=== PATIENT | female | born 1970 | race Caucasian/White ===

== ENCOUNTER → 2022-02-23 09:27 | Outpatient (CLI) | payer OTHER, MEDICAID, SELFPAY ==
[2022-02-23 10:58] LABS: Add Manual Diff / Slide Review NO; Basophils Absolute Auto 100 /uL (0-100); Eosinophils Absolute Auto 300 /uL (0-450); Eosinophils Percent Auto 5.1 % (2-4); Hematocrit 40.9 % (36-46); Hemoglobin 13.5 g/dL (12.0-16.0); Lymphocytes Absolute Auto 2000 /uL (1100-4500); Lymphocytes Percent Auto 36.7 % (25-40); Mean Corpuscular Hemoglobin 30.9 PG (26-34); Mean Corpuscular Volume 93.7 fL (80-100); Monocytes Absolute Auto 700 /uL (0-900); Monocytes Percent Auto 11.7 % (3-14); Neutrophils Absolute Auto 2500 /uL (1500-7000); Neutrophils Percent Auto 45.5 % (50-75); Platelet Count 179 X10^3/uL (150-400); Red Blood Cell Count 4.37 X10^6/uL (4.0-5.2); White Blood Cell Count 5.6 X10^3/uL (4.5-11.0)
[2022-02-23 11:25] LABS: Alanine Aminotransferase 22 IU/L (<35); Albumin 4.3 g/dL (3.5-5.0); Albumin Globulin Ratio 1.3 (1.0-2.8); Alkaline Phosphatase 65 U/L (38-126); Aspartate Aminotransferase 39 IU/L (14-36); BUN Creatinine Ratio 17.6 (6-22); Bilirubin Total 0.8 mg/dL (0.2-1.3); Blood Urea Nitrogen 16 mg/dL (7-17); Calcium 9.2 mg/dL (8.4-10.2); Carbon Dioxide 27 mmol/L (22-32); Chloride 104 mmol/L (98-107); Cholesterol 211 mg/dL (140-199); Estimated Glomerular Filt Rate > 60 mL/min (>60); Globulin 3.2 g/dL (1.7-4.1); Glucose 87 mg/dL (70-100); HDL Cholesterol 97 mg/dL (40-60); HEMOLYSIS < 15 (0-50); LDL Cholesterol Calculated 105 mg/dL (<100); Potassium 4.9 mmol/L (3.4-5.1); Sodium 138 mmol/L (137-145); Total Protein 7.5 g/dL (6.3-8.2); Triglycerides 44 mg/dL (35-150)
[2022-02-23 11:40] LABS: Free T3, Triiodothyronine Free 3.56 pg/mL (2.77-5.27)
[2022-02-23 11:54] LABS: TSH w/ Reflex to FT4 1.32 uIU/mL (0.47-4.68)
== END ==
PROVIDERS: PCP Family Medicine; Referring Provider Family Medicine; Visit Provider Family Medicine
DX: G89.29 Other chronic pain (principal); M54.2 Cervicalgia; M77.12 Lateral epicondylitis, left elbow; E03.9 Hypothyroidism, unspecified; M54.50 Low back pain, unspecified
CPT/HCPCS: 36415; 80053; 80061; 84443; 84481; 85025

== ENCOUNTER → 2022-07-19 14:31 | Outpatient (CLI) | payer OTHER, MEDICAID, SELFPAY ==
--- NOTE | 2022-07-19 14:33 | DI.MG.S_ITS ---
BILATERAL DIGITAL SCREENING MAMMOGRAM 3D/2D WITH CAD: 07/19/2022 CLINICAL: Routine screening. Baseline exam. Family history of breast cancer. No prior exams were available for comparison. Both breasts are heterogeneously dense, which may obscure small masses (category c / 51-75% glandular tissue). Current study was also evaluated with a Computer Aided Detection (CAD) system. There are benign calcifications in both breasts. No significant masses, calcifications, or other findings are seen in either breast. IMPRESSION: BENIGN There is no mammographic evidence of malignancy. A 1 year screening mammogram is recommended. Based on the Tyrer Cuzick model (a risk assessment model) the patient's lifetime risk is 10.6% and her 10 year risk is 2.9%. According to the ACR, ACS, and NCCN guidelines, an annual breast MRI exam along with mammogram is recommended if the patient's lifetime risk is 20% or greater. This exam was interpreted at Station ID: [id number]. NOTE: For mammograms, a report in lay terms will be sent to the patient. Approximately 15% of breast malignancies will not be visualized mammographically. In the management of a palpable breast mass, a negative mammogram must not discourage biopsy of a clinically suspicious lesion. Electronically Signed By: Agusto [email or web address]:07/20/2022 10:20:36 letter sent: Normal Exam ACR BI-RADS Category 2: Benign Finding(s) 3342F
== END ==
PROVIDERS: PCP Family Medicine; Referring Provider Family Medicine; Visit Provider Family Medicine
DX: Z12.31 Encounter for screening mammogram for malignant neoplasm of breast (principal); Z80.3 Family history of malignant neoplasm of breast
CPT/HCPCS: 77063; 77067

== ENCOUNTER → 2023-02-23 11:45 | Outpatient (CLI) | payer OTHER, MEDICAID, SELFPAY ==
--- NOTE | 2023-02-23 11:47 | DI.RAD.S_ITS ---
PROCEDURE: XR HAND RT MIN 3V INDICATIONS: pain to middle finger, misshapen appearance (sausage-like) TECHNIQUE: 3 views of the hand(s) acquired. COMPARISON: None. FINDINGS: Bones: No fractures or dislocations. Carpal bones are normally aligned. There is a lucency in the distal aspect of the 3rd middle phalanx at the distal interphalangeal joint. There is joint space narrowing, periarticular bony erosion and periarticular soft tissue swelling at the 3rd distal interphalangeal joint. Soft tissues: No suspicious soft tissue calcifications. IMPRESSION: 1. Joint space narrowing and periarticular soft tissue swelling at the 3rd distal interphalangeal joint. There is a lucency in the distal aspect of the 3rd middle phalanx adjacent to the 3rd distal interphalangeal joint, probably a prominent subchondral cyst. There is periarticular bony erosion and soft tissue swelling. Differential diagnoses are inflammatory arthritis versus septic arthritis. Dictated by: Vidhya Cruz M.D. on 02/23/2023 at 15:14 Approved by: Vidhya Cruz M.D. on 02/23/2023 at 15:25
[2023-02-23 13:14] LABS: Add Manual Diff / Slide Review NO; Basophils Absolute Auto 0 /uL (0-100); Basophils Percent Auto 0.7 % (0-2); Eosinophils Absolute Auto 100 /uL (0-450); Eosinophils Percent Auto 1.1 % (2-4); Hematocrit 38.6 % (36-46); Hemoglobin 13.1 g/dL (12.0-16.0); Lymphocytes Absolute Auto 1700 /uL (1100-4500); Lymphocytes Percent Auto 24.9 % (25-40); Mean Corpuscular Hemoglobin 31.5 PG (26-34); Mean Corpuscular Volume 92.7 fL (80-100); Monocytes Absolute Auto 600 /uL (0-900); Neutrophils Absolute Auto 4500 /uL (1500-7000); Neutrophils Percent Auto 64.3 % (50-75); Platelet Count 186 X10^3/uL (150-400); Red Blood Cell Count 4.17 X10^6/uL (4.0-5.2); Red Cell Distribution Width 14.7 % (11.6-14.8)
[2023-02-23 13:58] LABS: Alanine Aminotransferase 38 IU/L (<35); Albumin 4.5 g/dL (3.5-5.0); Albumin Globulin Ratio 1.5 (1.0-2.8); Alkaline Phosphatase 65 U/L (38-126); Aspartate Aminotransferase 67 IU/L (14-36); BUN Creatinine Ratio 18.1 (6-22); Bilirubin Total 0.8 mg/dL (0.2-1.3); Blood Urea Nitrogen 15 mg/dL (7-17); C-Reactive Protein Quant 0.5 mg/dL (<1.0); Calcium 9.4 mg/dL (8.4-10.2); Carbon Dioxide 24 mmol/L (22-32); Chloride 102 mmol/L (98-107); Estimated Glomerular Filt Rate > 60 mL/min (>60); Glucose 103 mg/dL (70-100); HEMOLYSIS < 15 (0-50); Potassium 4.3 mmol/L (3.4-5.1); Sodium 135 mmol/L (137-145); Total Protein 7.5 g/dL (6.3-8.2); Uric Acid 9.9 mg/dL (2.5-6.2)
[2023-02-23 13:59] LABS: Rheumatoid Factor 14.5 IU/mL (<12.0)
[2023-02-23 14:44] LABS: Vitamin B12 239 pg/mL (239-931)
== END ==
PROVIDERS: PCP Family Medicine; Referring Provider Physician Assistant; Visit Provider Physician Assistant
DX: M79.644 Pain in right finger(s) (principal)
CPT/HCPCS: 36415; 73130; 80053; 82607; 83036; 84550; 85025; 86140; 86430

== ENCOUNTER → 2023-05-10 11:20 | Outpatient (CLI) | payer OTHER, MEDICAID, SELFPAY ==
--- NOTE | 2023-05-10 11:21 | DI.RAD.S_ITS ---
PROCEDURE: XR CERVICAL SPINE 2V OR 3V INDICATIONS: acute on chronic pain TECHNIQUE: 3 view(s) of the cervical spine were acquired. COMPARISON: None. FINDINGS: Bones: No fractures or dislocations to the T1 level. The lateral masses of C1 appear intact on the odontoid view. No suspicious bony lesions. Severe cervical spondylosis. Multilevel facet arthropathy. Severe disc height loss at C4-C5. Anterolisthesis of C3 on C4 measures approximately 3.5 mm. Soft tissues: No prevertebral soft tissue swelling. IMPRESSION: Severe cervical spondylosis. 3.5 mm of anterolisthesis of C3 on C4. Dictated by: Gabe Currie M.D. on 05/10/2023 at 17:04 Approved by: Gabe Currie M.D. on 05/10/2023 at 17:07
== END ==
PROVIDERS: PCP Family Medicine; Referring Provider Physician Assistant; Visit Provider Physician Assistant
DX: M47.812 Spondylosis without myelopathy or radiculopathy, cervical region (principal); M54.2 Cervicalgia; G89.29 Other chronic pain
CPT/HCPCS: 72040

== ENCOUNTER → 2023-08-15 15:01 | Outpatient (CLI) | payer OTHER, MEDICAID, SELFPAY ==
--- NOTE | 2023-08-15 15:05 | DI.RAD.S_ITS ---
PROCEDURE: XR CERVICAL SPINE 2V OR 3V INDICATIONS: Neck Pain TECHNIQUE: 3 view(s) of the cervical spine were acquired. COMPARISON: [facility], CR, XR CERVICAL SPINE 2V OR 3V, 05/10/2023, 11:27. FINDINGS: Bones: 4 mm anterolisthesis of C3 on C4. Moderate degenerative changes seen elsewhere. 5 mm of anterolisthesis of C7 on T1. Vertebral body heights are well maintained. Soft tissues: No suspicious calcifications. Normal C1 on C2 alignment. IMPRESSION: Moderate degenerative changes and anterolisthesis of C3 on C4 and C7 on T1. If there is high concern for further derangement, consider MRI evaluation. Dictated by: Frankie Montero M.D. on 08/15/2023 at 19:55 Approved by: Frankie Montero M.D. on 08/15/2023 at 19:56
== END ==
PROVIDERS: Family Provider Family Medicine; PCP Family Medicine; Referring Provider Family Medicine; Visit Provider Family Medicine
DX: M47.812 Spondylosis without myelopathy or radiculopathy, cervical region (principal); M43.12 Spondylolisthesis, cervical region; M54.2 Cervicalgia; G89.29 Other chronic pain
CPT/HCPCS: 72040

== ENCOUNTER → 2023-08-16 08:02 | Outpatient (CLI) | payer OTHER, MEDICAID, SELFPAY ==
[2023-08-16 08:41] LABS: Add Manual Diff / Slide Review NO; Basophils Absolute Auto 0 /uL (0-100); Basophils Percent Auto 0.7 % (0-2); Eosinophils Absolute Auto 200 /uL (0-450); Eosinophils Percent Auto 3.9 % (2-4); Hematocrit 40.3 % (36-46); Hemoglobin 13.6 g/dL (12.0-16.0); Lymphocytes Absolute Auto 1500 /uL (1100-4500); Lymphocytes Percent Auto 29.9 % (25-40); Mean Corpuscular HGB Conc 33.6 % (30-36); Mean Corpuscular Hemoglobin 31.6 PG (26-34); Monocytes Absolute Auto 500 /uL (0-900); Monocytes Percent Auto 10.8 % (3-14); Neutrophils Absolute Auto 2800 /uL (1500-7000); Neutrophils Percent Auto 54.7 % (50-75); Platelet Count 168 X10^3/uL (150-400); Red Blood Cell Count 4.29 X10^6/uL (4.0-5.2); Red Cell Distribution Width 14.6 % (11.6-14.8)
[2023-08-16 09:16] LABS: Alanine Aminotransferase 45 IU/L (<35); Albumin 4.5 g/dL (3.5-5.0); Albumin Globulin Ratio 1.5 (1.0-2.8); Alkaline Phosphatase 63 U/L (38-126); Aspartate Aminotransferase 57 IU/L (14-36); BUN Creatinine Ratio 19.7 (6-22); Bilirubin Total 0.8 mg/dL (0.2-1.3); Blood Urea Nitrogen 15 mg/dL (7-17); Calcium 9.4 mg/dL (8.4-10.2); Carbon Dioxide 26 mmol/L (22-32); Chloride 104 mmol/L (98-107); Cholesterol 209 mg/dL (140-199); Estimated Glomerular Filt Rate > 60 mL/min (>60); Globulin 3.1 g/dL (1.7-4.1); Glucose 93 mg/dL (70-100); HDL Cholesterol 98 mg/dL (40-60); HEMOLYSIS < 15 (0-50); LDL Cholesterol Calculated 102 mg/dL (<100); Potassium 4.5 mmol/L (3.4-5.1); Sodium 139 mmol/L (137-145); Total Protein 7.6 g/dL (6.3-8.2); Triglycerides 46 mg/dL (35-150)
[2023-08-17 04:37] LABS: Apolipoprotein B 74 mg/dL (<90)
[2023-08-18 13:26] LABS: Lipoprotein (a) <8.4 nmol/L (<75.0)
== END ==
PROVIDERS: Family Provider Family Medicine; PCP Family Medicine; Referring Provider Family Medicine; Visit Provider Family Medicine
DX: M19.90 Unspecified osteoarthritis, unspecified site (principal); R76.8 Other specified abnormal immunological findings in serum; M10.9 Gout, unspecified; E78.5 Hyperlipidemia, unspecified; R74.8 Abnormal levels of other serum enzymes
CPT/HCPCS: 36415; 80053; 80061; 82172; 83695; 84550; 85025; 86430

== ENCOUNTER → 2023-08-25 08:22 | Outpatient (CLI) | payer OTHER, MEDICAID, SELFPAY ==
--- NOTE | 2023-08-25 08:22 | DI.MRI.S_ITS ---
PROCEDURE: MR CERVICAL SPINE WO CON INDICATIONS: Severe spondylosis and anterolisthesis with significant pain TECHNIQUE: Noncontrast sagittal T1 spin echo and T2 fast spin echo, sagittal STIR, foraminal oblique sagittal T2 fast spin echo, and axial gradient echo or T2 fast spin echo through the cervical spine. COMPARISON: None. FINDINGS: Image quality: Excellent. Alignment and Curvature: Grade 1 anterior degenerative spondylolisthesis C3-4 and T2-3 Bone Marrow: Marrow demonstrates normal overall signal. Spinal Cord: Short 5th thin syrinx noted in the posterior cord measuring 1.3 mm in diameter extending from C5-6 to C7-T1 Paraspinous Soft Tissues: No paravertebral masses. Prevertebral soft tissues are normal in thickness. C2-C3: Normal appearance. C3-C4: Disc space narrowing and hypertrophic facet joints with small right facet joint effusion noted. Mild central stenosis. No foraminal stenosis C4-C5: Disc space narrowing and hypertrophic uncovertebral joints associated with moderate left foraminal stenosis. No central or right foraminal stenosis. C5-C6: Disc space narrowing. No central or foraminal stenosis C6-C7: Disc space narrowing. No central or foraminal stenosis C7-T1: Normal appearance. IMPRESSION: Multilevel degenerative disc disease and arthropathy associated with moderate left foraminal stenosis C4-5 Thin syrinx noted in the posterior cord in the lower cervical spine Approved by: Christ Elmore M.D. on 08/25/2023 at 18:11
== END ==
PROVIDERS: Family Provider Family Medicine; PCP Family Medicine; Referring Provider Family Medicine; Visit Provider Family Medicine
DX: M50.10 Cervical disc disorder with radiculopathy, unspecified cervical region (principal); M48.02 Spinal stenosis, cervical region; M43.12 Spondylolisthesis, cervical region; M54.81 Occipital neuralgia; G89.29 Other chronic pain; M47.22 Other spondylosis with radiculopathy, cervical region
CPT/HCPCS: 72141

== ENCOUNTER → 2023-09-01 08:29 | Outpatient (CLI) | payer OTHER, MEDICAID, SELFPAY ==
--- NOTE | 2023-09-01 08:31 | DI.US.S_ITS ---
PROCEDURE: US ABDOMEN COMPLETE INDICATIONS: abnormally elevated liver enzymes TECHNIQUE: Real-time scanning was performed of the abdominal and retroperitoneal organs, with image documentation. COMPARISON: None. FINDINGS: Liver: Increased liver echogenicity, likely mild hepatic steatosis. Gallbladder: Unremarkable. Biliary ducts: Intrahepatic bile ducts are non-dilated. Extrahepatic bile duct caliber measures 4 mm. Normal is 6-7 mm or less in diameter, or 10 mm or less post-cholecystectomy. Pancreas: Visualized portions of the pancreas are sonographically normal. Spleen: Spleen is normal in size and homogeneous in echotexture. Kidneys: Kidneys are normal in size and echotexture. Right kidney measures 8.1 cm long; left kidney measures 9.6 cm long. No hydronephrosis or nephrolithiasis. No solid masses. Aorta: Visualized aorta is normal in caliber at less than 3 cm. Iliacs: Proximal common iliac arteries are normal in caliber at less than 2.5 cm. IVC: Intrahepatic inferior vena cava is patent. Miscellaneous: No free abdominal fluid. IMPRESSION: Hepatic steatosis. Elevated liver enzymes could indicate steatohepatitis in the absence of other confounding variables. Dictated by: Andre Infante M.D. on 09/01/2023 at 9:11 Approved by: Andre Infante M.D. on 09/01/2023 at 9:13
== END ==
LOC: US 08:30
PROVIDERS: Family Provider Family Medicine; PCP Family Medicine; Referring Provider Family Medicine; Visit Provider Family Medicine
DX: K76.0 Fatty (change of) liver, not elsewhere classified (principal); R74.8 Abnormal levels of other serum enzymes
CPT/HCPCS: 76700

== ENCOUNTER 2023-09-04 08:15 | Outpatient (RCR) | payer OTHER, MEDICAID, SELFPAY ==
--- NOTE | 2023-07-13 13:04 | PT.OIE ---
Current Diagnoses Other chronic pain (07/13/23) Unspecified osteoarthritis, unspecified site (07/13/23) Cervicalgia (07/13/23) Pain in unspecified finger(s) (07/13/23) Past Medical History (Last Updated 06/12/23 @ 15:47 by Favio Fierro MD) Cervical radiculopathy Chicken pox (~1984) Chronic low back pain Chronic neck pain Lateral epicondylitis Myofascial pain Occipital neuralgia Wears glasses Past Surgical History (Last Reviewed 06/12/23 @ 15:45 by Favio Fierro MD) No pertinent past surgical history Visit Care Team Role Provider Type Fawad Jackson MD Family Provider Physician Primary Care Provider Specialty: Family Practice Address: [address] [place] [address] Email: [email or web address] Citlali Parks PA-C Attending Provider Advanced Painter Barrel Referring Provider Specialty: Medical Wound Care Address: [address] [place] [address], [facility] Email: [email or web address] Physical Therapy Initial Evaluation PT-OP-A Visit Information Start: 06/20/23 17:20 Freq: Status: Active Protocol: Document 07/13/23 09:50 LRN (Rec: 07/13/23 12:47 LRN [id number]) Out-Patient Physical Therapy Visit Information Visit Information Visit Type Initial Evaluation Visit Start Time 09:50 Visit Stop Time 10:50 Total Visit Minutes 60 Visit Number 07/19 Evaluation Information Evaluation Date 07/13/23 Precautions Precautions Pt history of inflammatory arthritis, back and neck pain. Record review: cervical spondylosis, anterolisthesis of cervical spine, ringing in ear, dizziness with lifting and R UE weakness - 06/12/23. PT-OP-B Current Condition Start: 06/20/23 17:20 Freq: Status: Active Protocol: Document 07/13/23 09:50 LRN (Rec: 07/13/23 12:47 LRN [id number]) Current Condition History of Current Condition Onset Date 2 months ago. Current Complaints Pain at back of neck, head, R shoulder & R arm pain. History of Current Condition Pt denies any recent incident that she can recall occuring prior to onset of posterior neck tightness (has always had mobility issues) that has progressively moved into the head causing headaches, and eventually caused pain with any head movement. She also c /o shoulder pain, mostly on the right. 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 Pt also reports a deformed R middle finger, but is most interested in rehab for her neck pain. States MD asked if she wanted therapy for her R middle finger deformity, so she said yes, but that her neck is the main reason for coming to therapy. She reports seeing an [facility] (Dr. Fierro) and was told her she had a pinched nerve. Head pain is much reduced and rated 1-2/10. Prior Treatments and Tests Massage therapy and myofascial work ever other week. X-rays taken (05/10/23): C1 appear intact on the odontoid view. No suspicious bony lesions. Severe cervical spondylosis. Multilevel facet arthropathy. Severe disc height loss at C4-C5. Anterolisthesis of C3 on C4 measures approximately 3.5 mm. Future Testing and Treatments Planned Pt hopes for MRI after 6 PT visits. Developmental History Developmental History Pt reports 2 soares ago was pushing wheelbarrow and slipped landing on her knees, causing her chin to hit the wheelbarrel edge. Pt feels she had recovered from the fall. 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 Pt history of Arthritis, back & neck pain, recent headaches. Did [employer] 10 yrs for funa and stopped 5 yrs ago. Pt [place] and [place], lives independently. Treatment Goals Patient/Caregiver Goals Pt goal is: Learn ex or movements that will help support her neck to prevent injections or surgery. Able to move wood and work in yard without onset of neck and R shoulder pain. Increase strength of R arm. Personal Factors Other Personal Factors That May Effect Lives [place] independently Therapy/Recovery on [place] and supports her mother. [place] participation for 10 yrs, ending 5 yrs ago. Musculoskeletal changes ( Anterolisthesis of C3 on C4, disc hgt loss C4-C5, and multilevel facet arthroopathy) . PT-OP-C Subjective Start: 06/20/23 17:20 Freq: Status: Active Protocol: Document 07/13/23 09:50 LRN (Rec: 07/13/23 12:47 LRN [id number]) Patient Questionnaires Neck Disability Index NDI Score 8 Neck Disability Index Impairment 1 to 19% Impaired (Score 1-9) Quick Dash- Upper Extremity Quick Dash UE Score 11.36 Quick Dash UE Impairment 1 to 19% Impaired (Score 1-19) OP-PT Pain Assessment Pain Assessment Grid Paper Pain Assessment Grid Completed Yes Location Head Pain Location Details posterior and top Scale Used Numeric (0 - 10) Description- Other Pain rated 1-2/10 R shoulder Pain Location Details Top of R shoulder into lateral neck, R>L posterior upper back to mid scap Intensity 2 Scale Used Numeric (0 - 10) Pain Alleviating Factors Meditation Other Pain Alleviating Factors Ms relaxors and NSAIDs first few days. Neck Pain Location Details Subocciptal and middle of scapula, radiates up to head/R side of face. 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 Fingers were bluish purple. PT-OP-J Posture/Palpation/Skin Start: 06/20/23 17:20 Freq: Status: Active Protocol: Document 07/13/23 09:50 LRN (Rec: 07/13/23 12:47 LRN [id number]) Posture Evaluation Position Standing Head/C-Spine Posture C-Spine Flattened,Forward Head L-Spine Posture Increased Lordosis Shoulder Posture (L) Forward,(L) Elevated Scapula Posture (R) Retracted,(R) Depressed Arm Posture (L) Internally Rotated,(R) Internally Rotated Pelvis Posture Neutral Comments Posture Comments L chest more anterior, (tight on R side of neck), dowagers hump, Chest in L rotation. Palpation Assessment Location R Rhomboids/Infraspinatus Palpation Location R Rhomboids & Infraspinatus. Palpation Details atrophy R Rhomboids, & infraspinatus R UT Palpation Location R UT feels tight, but is atrophied. Palpation Details Atrophy Neck Palpation Location Suboccipital Palpation Details Tingling down arm. PT-OP-K Range of Motion Start: 06/20/23 17:20 Freq: Status: Active Protocol: Document 07/13/23 09:50 LRN (Rec: 07/13/23 12:47 LRN [id number]) Cervical Spine Range of Motion Cervical Spine Active Degrees Testing Position Sitting Flexion 32 Extension 26 Rotation Left 47 Rotation Right 35 Lateral Flexion Left 10 Lateral Flexion Right 18 ROM Limitations Soft Tissue Tightness Comments L SB causes tingling down R arm, R SB noted tightness on L UT. Flex & Ext caused tightness and ache in R shoulder (worse lookking up) PT-OP-M Strength Start: 06/20/23 17:20 Freq: Status: Active Protocol: Document 07/13/23 09:50 LRN (Rec: 07/13/23 12:47 LRN [id number]) Cervical Spine Strength Cervical Spine Manual Muscle Testing Testing Position Sitting Flexion (C1-2) 4 Good Extension 4 Good Lateral Flexion Left (C3) 4 Good Lateral Flexion Right (C3) 4 Good Comments Ext and SB caused radiating pain into R shoulder. Shoulder Strength Shoulder Manual Muscle Testing Right Extension 4 Good External Rotation 4- Good- Internal Rotation 4- Good- Comments Strength is 5/5 except as indicated above. Left Comments Strength is Generally 5/5 Hand Desk Maker/Pinch Strength Hand Dominance Hand Dominance Right PT-OP-Q Treatments Start: 06/20/23 17:20 Freq: Status: Active Protocol: Document 07/13/23 09:50 LRN (Rec: 07/13/23 12:47 LRN [id number]) Therapeutic Exercises Sitting Exercises Kevin C. Flex Sitting Exercise Name Kevin C. Flex in different ranges Equipment Used Finger tip pressure at forehead Reps/Minutes 4' Comments Cuing for positioningof fingers and caution to not resist into pain. Self-Care/Home Management Treatment Education Patient Education Home Exercise Program Other Education Discussed results of evaluation, discussed goals, and plan of care (POC). Pt agreeable to goals and POC. Activities Self-Care/Home Management Activities I/S pt in C. Kevin Flex strengthening. PT-OP-T Assessment and Plan Start: 06/20/23 17:20 Freq: Status: Active Protocol: Document 07/13/23 09:50 LRN (Rec: 07/13/23 12:47 LRN [id number]) Physical Therapy Assessment Rehab Potential Rehabilitation Potential Fair Evaluation Complexity Number of Personal Factors/Comorbidities 3 or More Number of Body Systems Impaired 4 or More Clinical Presentation at Evaluation Evolving Impairments Impairments Activity Tolerance,Pain, Posture,ROM,Sensation,Soft Tissue Mobility,Strength Goals Three Impairment Decreased neck strength Impairment Generally 4/5 Short Term Goal (STG) Pt will be educated in a Cervical strengthening HEP. STG Duration 2 wks-07/28/23 Care Home Goal (LTG) Improve Cervical strength 1/2 grade with pt able to tolerate her exercise workouts without and increase in neck or R shoulder pain. LTG Duration 10 wks-09/22/23 Two Impairment Decreased R shoulder strength Care Home Goal (LTG) Increase R shoulder/UE strength to 5/5 with pt able to move winter wood and work in yard without onset of neck and R shoulder pain. LTG Duration 10 wks-09/22/23 One Impairment Pt lacks appropriate self care HEP. Short Term Goal (STG) Pt will be educated in proper nighttime positioning to minimize neck/shoulder pain. STG Duration 2 wks-07/28/23 Care Home Goal (LTG) Pt will be educated in HEP for ROM and strengthening of neck /shoulder/upper back that will help support her neck to prevent injections or surgery. LTG Duration 10 wks-09/22/23 Assessment Summary Assessment Pt is a 52 yo female with mechanical dysfunction of the cervical (C3-C5) and thoracic spine, R shoulder, and intrascapular pain (C3-C7). She has mechanical dysfunction with multilevel spondylosis with anterolisthesis of C3 on C4. She is having radiating head pain and tingling in R shoulder with Cervical compression and traction, indicating other soft tissue dysfunction. The pt indicated a year ago slipping and falling with her chin hitting a wheelbarrow as her knees hit the ground. Record review indicates x-rays shoing lateral masses of C1 appear intact on the odontoid view. MRI for bony assessment of C1- C2 and soft tissue involvement to rule out subocciptal instability as she has symptoms of facial and shoulder pain on palpation. Pt will benefit from skilled physical therapy for cervical/ shoulder stabilization, ROM and postural/body mechanics training, and nighttime positioning. Physical Therapy Plan Frequency and Duration Frequency of Treatment 2x/Week Duration of treatment (weeks) 10 Plan of Care Start Date 07/13/23 Plan of Care End Date 09/22/23 Therapeutic Interventions Therapeutic Interventions Home Exercise Program,Joint Mobilizations,Manual Therapy, Neuromuscular Re-education, Self-Care/Home Management,Soft Tissue Mobilization,Taping, Therapeutic Activities, Therapeutic Exercises Modalities Cold Pack/Ice Massage,Electric Stimulation,Hot Packs, Paraffin Bath,Traction- Mechanical,Ultrasound Next Visit Focus/Plan Next Note Type Treatment Note Next Visit Plan Review issued HEP, assess general R UE strength & storekeeper engineering strength, Special C. tests, DTR's, POC: Stabilization of C/S, R shoulder/scapular stabilizers, general UE strengthening, C. AROM stretch, Postural correction exercises. Pt education nighttime/sit/stand positioning, body mechanics,
--- NOTE | 2023-07-13 13:04 | PT.OPPOC ---
Physical, Occupational & Speech Therapy At [facility] Current Diagnoses Other chronic pain (07/13/23) Unspecified osteoarthritis, unspecified site (07/13/23) Cervicalgia (07/13/23) Pain in unspecified finger(s) (07/13/23) Visit Care Team Role Provider Type Fawad Jackson MD Family Provider Physician Primary Care Provider Specialty: Family Practice Address: [address] [place] [address], [id number] Email: [email or web address] Citlali Parks PA-C Attending Provider Advanced Cremator Referring Provider Specialty: Medical Wound Care Address: [address] [place] [address], [id number] Email: [email or web address] Plan Of Care PT-OP-T Assessment and Plan Start: 06/20/23 17:20 Freq: Status: Active Protocol: Document 07/13/23 09:50 LRN (Rec: 07/13/23 12:47 LRN [id number]) Physical Therapy Assessment Rehab Potential Rehabilitation Potential Fair Evaluation Complexity Number of Personal Factors/Comorbidities 3 or More Number of Body Systems Impaired 4 or More Clinical Presentation at Evaluation Evolving Impairments Impairments Activity Tolerance,Pain, Posture,ROM,Sensation,Soft Tissue Mobility,Strength Goals Three Impairment Decreased neck strength Impairment Generally 4/5 Short Term Goal (STG) Pt will be educated in a Cervical strengthening HEP. STG Duration 2 wks-07/28/23 Mill Washer Goal (LTG) Improve Cervical strength 1/2 grade with pt able to tolerate her exercise workouts without and increase in neck or R shoulder pain. LTG Duration 10 wks-09/22/23 Two Impairment Decreased R shoulder strength Half-Way Goal (LTG) Increase R shoulder/UE strength to 5/5 with pt able to move winter wood and work in yard without onset of neck and R shoulder pain. LTG Duration 10 wks-09/22/23 One Impairment Pt lacks appropriate self care HEP. Short Term Goal (STG) Pt will be educated in proper nighttime positioning to minimize neck/shoulder pain. STG Duration 2 wks-07/28/23 Mill Washer Goal (LTG) Pt will be educated in HEP for ROM and strengthening of neck /shoulder/upper back that will help support her neck to prevent injections or surgery. LTG Duration 10 wks-09/22/23 Assessment Summary Assessment Pt is a 52 yo female with mechanical dysfunction of the cervical (C3-C5) and thoracic spine, R shoulder, and intrascapular pain (C3-C7). She has mechanical dysfunction with multilevel spondylosis with anterolisthesis of C3 on C4. She is having radiating head pain and tingling in R shoulder with Cervical compression and traction, indicating other soft tissue dysfunction. The pt indicated a year ago slipping and falling with her chin hitting a wheelbarrow as her knees hit the ground. Record review indicates x-rays shoing lateral masses of C1 appear intact on the odontoid view. MRI for bony assessment of C1- C2 and soft tissue involvement to rule out subocciptal instability as she has symptoms of facial and shoulder pain on palpation. Pt will benefit from skilled physical therapy for cervical/ shoulder stabilization, ROM and postural/body mechanics training, and nighttime positioning. Physical Therapy Plan Frequency and Duration Frequency of Treatment 2x/Week Duration of treatment (weeks) 10 Plan of Care Start Date 07/13/23 Plan of Care End Date 09/22/23 Therapeutic Interventions Therapeutic Interventions Home Exercise Program,Joint Mobilizations,Manual Therapy, Neuromuscular Re-education, Self-Care/Home Management,Soft Tissue Mobilization,Taping, Therapeutic Activities, Therapeutic Exercises Modalities Cold Pack/Ice Massage,Electric Stimulation,Hot Packs, Paraffin Bath,Traction- Mechanical,Ultrasound Next Visit Focus/Plan Next Note Type Treatment Note Next Visit Plan Review issued HEP, assess general R UE strength & insurance billing clerk strength, Special C. tests, DTR's, POC: Stabilization of C/S, R shoulder/scapular stabilizers, general UE strengthening, C. AROM stretch, Postural correction exercises. Pt education nighttime/sit/stand positioning, body mechanics, Plan of Care Dates Plan of Care Start Date 07/13/23 Plan of Care End Date 09/22/23 Electronically Signed by: Kareen Esteban, PT 07/13/23 [id number] If you are in agreement with this Plan of Care, please return a signed and dated copy. I have reviewed this Plan of Care and certify that the skilled therapy services above are required to meet the patient?s needs. Physician Signature Date Printed Name and Credentials Clinical Instructor Signature Printed Name and Credentials
--- NOTE | 2023-07-18 15:43 | PT.OTN ---
Current Diagnoses Other chronic pain (07/18/23) Unspecified osteoarthritis, unspecified site (07/18/23) Cervicalgia (07/18/23) Pain in unspecified finger(s) (07/18/23) Physical Therapy Treatment Note PT-OP-A Visit Information Start: 06/20/23 17:20 Freq: Status: Active Protocol: Document 07/18/23 14:36 LRN (Rec: 07/18/23 15:43 LRN [id number]) Out-Patient Physical Therapy Visit Information Visit Information Visit Type Treatment Note Visit Start Time 14:36 Visit Stop Time 15:14 Total Visit Minutes 38 Visit Number 08/19 Evaluation Information Evaluation Date 07/13/23 Precautions Precautions Pt history of inflammatory arthritis, back and neck pain. Record review: cervical spondylosis, anterolisthesis of cervical spine, ringing in ear, dizziness with lifting and R UE weakness - 06/12/23. PT-OP-B Current Condition Start: 06/20/23 17:20 Freq: Status: Active Protocol: Document 07/13/23 09:50 LRN (Rec: 07/13/23 12:47 LRN [id number]) Current Condition History of Current Condition Onset Date 2 months ago. Current Complaints Pain at back of neck, head, R shoulder & R arm pain. History of Current Condition Pt denies any recent incident that she can recall occuring prior to onset of posterior neck tightness (has always had mobility issues) that has progressively moved into the head causing headaches, and eventually caused pain with any head movement. She also c /o shoulder pain, mostly on the right. Her pain is now slowly lessening, with changes made to her exercise workouts of milieu coordinator weights and reps during exercise. Pt also reports a deformed R middle finger, but is most interested in rehab for her neck pain. States MD asked if she wanted therapy for her R middle finger deformity, so she said yes, but that her neck is the main reason for coming to therapy. She reports seeing an [facility] (Dr. Fierro) and was told her she had a pinched nerve. Head pain is much reduced and rated 1-2/10. Prior Treatments and Tests Massage therapy and myofascial work ever other week. X-rays taken (05/10/23): C1 appear intact on the odontoid view. No suspicious bony lesions. Severe cervical spondylosis. Multilevel facet arthropathy. Severe disc height loss at C4-C5. Anterolisthesis of C3 on C4 measures approximately 3.5 mm. Future Testing and Treatments Planned Pt hopes for MRI after 6 PT visits. Developmental History Developmental History Pt reports 2 soares ago was pushing wheelbarrow and slipped landing on her knees, causing her chin to hit the wheelbarrel edge. Pt feels she had recovered from the fall. She is exercising with an assembler molded frames rehab trainer 2-3x/week. Pt history of Arthritis, back & neck pain, recent headaches. Did [employer] derby 10 yrs for funa and stopped 5 yrs ago. 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 Treatment Goals Patient/Caregiver Goals Pt goal is: Learn ex or movements that will help support her neck to prevent injections or surgery. Able to move wood and work in yard without onset of neck and R shoulder pain. Increase strength of R arm. Personal Factors Other Personal Factors That May Effect Lives on [place] independently Therapy/Recovery on 5 acres and supports her mother. [employer].In participation for 10 yrs, ending 5 yrs ago. Musculoskeletal changes ( Anterolisthesis of C3 on C4, disc hgt loss C4-C5, and multilevel facet arthroopathy) . PT-OP-C Subjective Start: 06/20/23 17:20 Freq: Status: Active Protocol: Document 07/18/23 14:36 LRN (Rec: 07/18/23 15:43 LRN [id number]) OP-PT Subjective Patient Comments Patient Comments numbness in lateral side of R hand PT-OP-H Neuro Start: 06/20/23 17:20 Freq: Status: Active Protocol: Document 07/18/23 14:36 LRN (Rec: 07/18/23 15:43 LRN [id number]) Deep Tendon Reflex & Clonus Assessment Deep Tendon Reflex Bilateral Brachioradialis Deep Tendon Reflex 2+ Normal Bilateral Tricep Deep Tendon Reflex 2+ Normal Right Bicep Deep Tendon Reflex 1+ Diminished Left Bicep Deep Tendon Reflex 2+ Normal PT-OP-J Posture/Palpation/Skin Start: 06/20/23 17:20 Freq: Status: Active Protocol: Document 07/13/23 09:50 LRN (Rec: 07/13/23 12:47 LRN [id number]) Posture Evaluation Position Standing Head/C-Spine Posture C-Spine Flattened,Forward Head L-Spine Posture Increased Lordosis Shoulder Posture (L) Forward,(L) Elevated Scapula Posture (R) Retracted,(R) Depressed Arm Posture (L) Internally Rotated,(R) Internally Rotated Pelvis Posture Neutral Comments Posture Comments L chest more anterior, (tight on R side of neck), dowagers hump, Chest in L rotation. Palpation Assessment Location R Rhomboids/Infraspinatus Palpation Location R Rhomboids & Infraspinatus. Palpation Details atrophy R Rhomboids, & infraspinatus R UT Palpation Location R UT feels tight, but is atrophied. Palpation Details Atrophy Neck Palpation Location Suboccipital Palpation Details Tingling down arm. PT-OP-K Range of Motion Start: 06/20/23 17:20 Freq: Status: Active Protocol: Document 07/13/23 09:50 LRN (Rec: 07/13/23 12:47 LRN [id number]) Cervical Spine Range of Motion Cervical Spine Active Degrees Testing Position Sitting Flexion 32 Extension 26 Rotation Left 47 Rotation Right 35 Lateral Flexion Left 10 Lateral Flexion Right 18 ROM Limitations Soft Tissue Tightness Comments L SB causes tingling down R arm, R SB noted tightness on L UT. Flex & Ext caused tightness and ache in R shoulder (worse lookking up) PT-OP-M Strength Start: 06/20/23 17:20 Freq: Status: Active Protocol: Document 07/18/23 14:36 LRN (Rec: 07/18/23 15:43 LRN [id number]) Hand Investor Relations Coordinator/Pinch Strength Hand Dominance Hand Dominance Right Hand Strength Right Comments lbs: 47, 35, 42 - avg is 41 lbs k, 16, 19 - avg is 19 kg (Norm for age 50-54 is 29.8 kg ) Left Comments lbs: 53, 50, 47 - avg is 50 lbs k, 22, 22 - avg is 22.7 kgs (Norm for age 50-54 is 26 kg) PT-OP-Q Treatments Start: 06/20/23 17:20 Freq: Status: Active Protocol: Document 07/18/23 14:36 LRN (Rec: 07/18/23 15:43 LRN [id number]) Therapeutic Exercises Supine Exercises Deep C. neck flexor Kevin Supine Exercise Name Deep C. neck flexor kevin tightening Reps/Minutes 5 SH x 8 Comments After 8 reps, had more tingling down outside R hand wrist and pinky. Scapular pinches Supine Exercise Name Scapular pinches Side bilateral Comments Cuing for movement and to avoid pain an discomfort. Sitting Exercises Gripping Sitting Exercise Name Gripping Dynamometer Side bilateral Reps/Minutes 6' Comments Avg us marketing director: 22.7 L, 29.8 R Kevin C. Flex Sitting Exercise Name Kevin C. Flex in 2 different ranges (netural, 20 & 40 deg flex) Equipment Used Finger tip pressure at forehead Reps/Minutes 5 SH x 5 Comments Cued for gentle kevin resistance for no pressure or pain. Manual Therapy Treatment Soft Tissue Mobilization R UT Body Location R UT Mobilization Type Strumming Intensity/Depth Superficial Comments Caused numbness in R lateral side of head. Self-Care/Home Management Treatment Education Patient Education Home Exercise Program Other Education 6' to call MD for return call to request open mouth x-ray. Activities Self-Care/Home Management Activities I/S pt in Deep C. neck flexor kevin strengthening (neck elongation) & Scapular pinches . Pt to stop if onset of numbness, tinglng, pain at R wrist/5th digit or head. PT-OP-T Assessment and Plan Start: 06/20/23 17:20 Freq: Status: Active Protocol: Document 07/18/23 14:36 LRN (Rec: 07/18/23 15:43 LRN [id number]) Physical Therapy Assessment Goals Three Impairment Decreased neck strength Impairment Generally 4/5 Short Term Goal (STG) Pt will be educated in a Cervical strengthening HEP. 07/18/23: I/S HEP: Deep C. neck flexor kevin strengthening (neck elongation) & Scapular pinches without R wrist/pinky or head sensation changes/pain . STG Duration 2 wks-07/28/23 progressed Studio Data Analyst Goal (LTG) Improve Cervical strength 1/2 grade with pt able to tolerate her exercise workouts without and increase in neck or R shoulder pain. 07/13/22: I/S HEP: Kevin C. flex strengthening. 07/18/23: I/S HEP: Deep C. neck flexor strengthening. LTG Duration 10 wks-09/22/23 progressed 07/13/23 Two Impairment Decreased R shoulder strength Prison Goal (LTG) Increase R shoulder/UE strength to 5/5 with pt able to move winter wood and work in yard without onset of neck and R shoulder pain. 07/18/23: I/S HEP: Scapular pinches. LTG Duration 10 wks-09/22/23 progressed 07/18/23 One Impairment Pt lacks appropriate self care HEP. Short Term Goal (STG) Pt will be educated in proper nighttime positioning to minimize neck/shoulder pain. STG Duration 2 wks-07/28/23 Prison Goal (LTG) Pt will be educated in HEP for ROM and strengthening of neck /shoulder/upper back that will help support her neck to prevent injections or surgery. LTG Duration 10 wks-09/22/23 Assessment Summary Assessment Pt is a 52 yo female with mechanical dysfunction of the cervical (C3-C5) and thoracic spine, R shoulder, and intrascapular pain (C3-C7). R elbow ext is 4+/5, L is 5/5; Pt noted less response to reflex testing on the L side. Onset of numbness on the R side of face and R hand/wrist on pinky side after UE MMT. 3:04 finished MMT of us marketing director Physical Therapy Plan Frequency and Duration Frequency of Treatment 2x/Week Duration of treatment (weeks) 10 Plan of Care Start Date 07/13/23 Plan of Care End Date 09/22/23 Next Visit Focus/Plan Next Note Type Treatment Note Next Visit Plan Issued HEP, Hold Special C. tests until discuss with referring provider or her physician open mouth x-ray request. NEXT: general UE strengthening POC: Stabilization of C/S, R shoulder/scapular stabilizers, C. AROM stretch, Postural correction exercises. Pt education nighttime/sit/stand positioning, body mechanics.
--- NOTE | 2023-07-21 10:15 | PT.OTN ---
Current Diagnoses Other chronic pain (07/21/23) Unspecified osteoarthritis, unspecified site (07/21/23) Cervicalgia (07/21/23) Pain in unspecified finger(s) (07/21/23) Physical Therapy Treatment Note PT-OP-A Visit Information Start: 06/20/23 17:20 Freq: Status: Active Protocol: Document 07/21/23 09:12 LRN (Rec: 07/21/23 10:14 LRN [id number]) Out-Patient Physical Therapy Visit Information Visit Information Visit Type Treatment Note Visit Start Time 09:12 Visit Stop Time 09:54 Visit Number 09/16 Evaluation Information Evaluation Date 07/13/23 Precautions Precautions Pt history of inflammatory arthritis, back and neck pain. Record review: cervical spondylosis, anterolisthesis of cervical spine, ringing in ear, dizziness with lifting and R UE weakness - 06/12/23. PT-OP-B Current Condition Start: 06/20/23 17:20 Freq: Status: Active Protocol: Document 07/13/23 09:50 LRN (Rec: 07/13/23 12:47 LRN [id number]) Current Condition History of Current Condition Onset Date 2 months ago. Current Complaints Pain at back of neck, head, R shoulder & R arm pain. History of Current Condition Pt denies any recent incident that she can recall occuring prior to onset of posterior neck tightness (has always had mobility issues) that has progressively moved into the head causing headaches, and eventually caused pain with any head movement. She also c /o shoulder pain, mostly on the right. 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 Pt also reports a deformed R middle finger, but is most interested in rehab for her neck pain. States MD asked if she wanted therapy for her R middle finger deformity, so she said yes, but that her neck is the main reason for coming to therapy. She reports seeing an [facility] (Dr. Fierro) and was told her she had a pinched nerve. Head pain is much reduced and rated 1-2/10. Prior Treatments and Tests Massage therapy and myofascial work ever other week. X-rays taken (05/10/23): C1 appear intact on the odontoid view. No suspicious bony lesions. Severe cervical spondylosis. Multilevel facet arthropathy. Severe disc height loss at C4-C5. Anterolisthesis of C3 on C4 measures approximately 3.5 mm. Future Testing and Treatments Planned Pt hopes for MRI after 6 PT visits. Developmental History Developmental History Pt reports 2 soares ago was pushing wheelbarrow and slipped landing on her knees, causing her chin to hit the wheelbarrel edge. Pt feels she had recovered from the fall. She is exercising with an martial arts instructor safety trainer 2-3x/week. Pt history of Arthritis, back & neck pain, recent headaches. Did roller derby 10 yrs for funa and stopped 5 yrs ago. 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 Treatment Goals Patient/Caregiver Goals Pt goal is: Learn ex or movements that will help support her neck to prevent injections or surgery. Able to move wood and work in yard without onset of neck and R shoulder pain. Increase strength of R arm. Personal Factors Other Personal Factors That May Effect Lives on [place] independently Therapy/Recovery on [address] [place] and supports her mother. [employer] participation for 10 yrs, ending 5 yrs ago. Musculoskeletal changes ( Anterolisthesis of C3 on C4, disc hgt loss C4-C5, and multilevel facet arthroopathy) . PT-OP-C Subjective Start: 06/20/23 17:20 Freq: Status: Active Protocol: Document 07/21/23 09:12 LRN (Rec: 07/21/23 10:14 LRN [id number]) OP-PT Subjective Patient Comments Patient Comments Better with head pain, rated 2 -3/10. Neck is tired. Wants to know if a c. traction unit would be helpful that a friend offered her. States her R facial pain (dull ache) moves around: Back of eye, top of R side of head, entire R upper side of face. PT-OP-H Neuro Start: 06/20/23 17:20 Freq: Status: Active Protocol: Document 07/18/23 14:36 LRN (Rec: 07/18/23 15:43 LRN [id number]) Deep Tendon Reflex & Clonus Assessment Deep Tendon Reflex Bilateral Brachioradialis Deep Tendon Reflex 2+ Normal Bilateral Tricep Deep Tendon Reflex 2+ Normal Right Bicep Deep Tendon Reflex 1+ Diminished Left Bicep Deep Tendon Reflex 2+ Normal PT-OP-J Posture/Palpation/Skin Start: 06/20/23 17:20 Freq: Status: Active Protocol: Document 07/13/23 09:50 LRN (Rec: 07/13/23 12:47 LRN [id number]) Posture Evaluation Position Standing Head/C-Spine Posture C-Spine Flattened,Forward Head L-Spine Posture Increased Lordosis Shoulder Posture (L) Forward,(L) Elevated Scapula Posture (R) Retracted,(R) Depressed Arm Posture (L) Internally Rotated,(R) Internally Rotated Pelvis Posture Neutral Comments Posture Comments L chest more anterior, (tight on R side of neck), dowagers hump, Chest in L rotation. Palpation Assessment Location R Rhomboids/Infraspinatus Palpation Location R Rhomboids & Infraspinatus. Palpation Details atrophy R Rhomboids, & infraspinatus R UT Palpation Location R UT feels tight, but is atrophied. Palpation Details Atrophy Neck Palpation Location Suboccipital Palpation Details Tingling down arm. PT-OP-K Range of Motion Start: 06/20/23 17:20 Freq: Status: Active Protocol: Document 07/13/23 09:50 LRN (Rec: 07/13/23 12:47 LRN [id number]) Cervical Spine Range of Motion Cervical Spine Active Degrees Testing Position Sitting Flexion 32 Extension 26 Rotation Left 47 Rotation Right 35 Lateral Flexion Left 10 Lateral Flexion Right 18 ROM Limitations Soft Tissue Tightness Comments L SB causes tingling down R arm, R SB noted tightness on L UT. Flex & Ext caused tightness and ache in R shoulder (worse lookking up) PT-OP-M Strength Start: 06/20/23 17:20 Freq: Status: Active Protocol: Document 07/18/23 14:36 LRN (Rec: 07/18/23 15:43 LRN [id number]) Hand V Groove Cutter/Pinch Strength Hand Dominance Hand Dominance Right Hand Strength Right Comments lbs: 47, 35, 42 - avg is 41 lbs k, 16, 19 - avg is 19 kg (Norm for age 50-54 is 29.8 kg ) Left Comments lbs: 53, 50, 47 - avg is 50 lbs k, 22, 22 - avg is 22.7 kgs (Norm for age 50-54 is 26 kg) PT-OP-Q Treatments Start: 06/20/23 17:20 Freq: Status: Active Protocol: Document 07/21/23 09:12 LRN (Rec: 07/21/23 10:14 LRN [id number]) Therapeutic Exercises Supine Exercises Deep C. neck flexor Kevin Supine Exercise Name Deep C. neck flexor kevin tightening - I/S pt to do at home Equipment Used No pillow, towel roll under neck Reps/Minutes 5 SH x 10 Comments After 8 reps, had more tingling down outside R hand wrist and pinky. Sidelying Exercises Open book stretch Sidelying Exercise Name Open book stretch - I/S pt to do at home. Equipment Used Pillow and towel roll at neck Reps/Minutes 1 SH x 5 Comments To L cued not into pain (~ 100dg L arm HAB; R side: 110 dg) Manual Therapy Treatment Soft Tissue Mobilization L SCM Body Location L SCM at mastoid process and occiput Mobilization Type Sustained Pressure Intensity/Depth Moderate Body Position Supine R side of face Body Location MFR R frontal, temporal, lateral face and above ear. Mobilization Type Manual Lymphatic Drainage Intensity/Depth Superficial Body Position Supine Manual Traction Cervical Details C. tx, 25 deg's flex. Body Position Supine Reps/Duration 10' Comments Release of traction increased R side of facial pain. PT-OP-T Assessment and Plan Start: 06/20/23 17:20 Freq: Status: Active Protocol: Document 07/21/23 09:12 LRN (Rec: 07/21/23 10:14 LRN [id number]) Physical Therapy Assessment Goals Three Impairment Decreased neck strength Impairment Generally 4/5 Short Term Goal (STG) Pt will be educated in a Cervical strengthening HEP. 07/18/23: I/S HEP: Deep C. neck flexor kevin strengthening (neck elongation) & Scapular pinches without R wrist/pinky or head sensation changes/pain . STG Duration 2 wks-07/28/23 progressed Section Forest Fire Warden Goal (LTG) Improve Cervical strength 1/2 grade with pt able to tolerate her exercise workouts without and increase in neck or R shoulder pain. 07/13/22: I/S HEP: Kevin C. flex strengthening. 07/18/23: I/S HEP: Deep C. neck flexor strengthening. LTG Duration 10 wks-09/22/23 progressed 07/13/23 Two Impairment Decreased R shoulder strength Section Forest Fire Warden Goal (LTG) Increase R shoulder/UE strength to 5/5 with pt able to move winter wood and work in yard without onset of neck and R shoulder pain. 07/18/23: I/S HEP: Scapular pinches. LTG Duration 10 wks-09/22/23 progressed 07/18/23 One Impairment Pt lacks appropriate self care HEP. Short Term Goal (STG) Pt will be educated in proper nighttime positioning to minimize neck/shoulder pain. STG Duration 2 wks-07/28/23 Nursing Home Goal (LTG) Pt will be educated in HEP for ROM and strengthening of neck /shoulder/upper back that will help support her neck to prevent injections or surgery. 07/21/23: I/S in HEP: Deep C . neck flexor & open book stretch. LTG Duration 10 wks-09/22/23 Assessment Summary Assessment Pt has R facial tightness and guarding of L SCM; mechanical dysfunction of the cervical ( C1-C3) and thoracic spine, R shoulder, and intrascapular pain (C3-C7). manual C. tx relieved R facial pain, but release caused pain above eye and posterolateral area of R eye. MFR of R face appear to soften L SCM guarding. Open book motion limited by neck pain bilaterally. Physical Therapy Plan Frequency and Duration Frequency of Treatment 2x/Week Duration of treatment (weeks) 10 Plan of Care Start Date 07/13/23 Plan of Care End Date 09/22/23 Next Visit Focus/Plan Next Note Type Treatment Note Next Visit Plan Issued HEP (deep c. neck flexor & open book), Hold Special C. tests until discuss with referring provider or her physician open mouth x-ray request. NEXT: Cont MFR to R face/head . Educate in proper nighttime positioning and start general UE strengthening w/correct posture. POC: Stabilization of C/S, R shoulder/scapular stabilizers, C. AROM stretch, Postural correction exercises. Pt education sit/stand posture, & body mechanics.
--- NOTE | 2023-07-24 09:48 | PT.OTN ---
Current Diagnoses Other chronic pain (07/24/23) Unspecified osteoarthritis, unspecified site (07/24/23) Cervicalgia (07/24/23) Pain in unspecified finger(s) (07/24/23) Physical Therapy Treatment Note PT-OP-A Visit Information Start: 06/20/23 17:20 Freq: Status: Active Protocol: Document 07/24/23 09:12 SP (Rec: 07/24/23 09:50 SP [id number]) Out-Patient Physical Therapy Visit Information Visit Information Visit Type Treatment Note Visit Start Time 09:12 Visit Stop Time 09:48 Visit Number 10/17 Number of [employer] SALES REPRESENTATIVE Visits 1 Evaluation Information Evaluation Date 07/13/23 Precautions Precautions Pt history of inflammatory arthritis, back and neck pain. Record review: cervical spondylosis, anterolisthesis of cervical spine, ringing in ear, dizziness with lifting and R UE weakness - 06/12/23. PT-OP-B Current Condition Start: 06/20/23 17:20 Freq: Status: Active Protocol: Document 07/13/23 09:50 LRN (Rec: 07/13/23 12:47 LRN [id number]) Current Condition History of Current Condition Onset Date 2 months ago. Current Complaints Pain at back of neck, head, R shoulder & R arm pain. History of Current Condition Pt denies any recent incident that she can recall occuring prior to onset of posterior neck tightness (has always had mobility issues) that has progressively moved into the head causing headaches, and eventually caused pain with any head movement. She also c /o shoulder pain, mostly on the right. 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 Pt also reports a deformed R middle finger, but is most interested in rehab for her neck pain. States MD asked if she wanted therapy for her R middle finger deformity, so she said yes, but that her neck is the main reason for coming to therapy. She reports seeing an [facility] (Dr. Fierro) and was told her she had a pinched nerve. Head pain is much reduced and rated 1-2/10. Prior Treatments and Tests Massage therapy and myofascial work ever other week. X-rays taken (05/10/23): C1 appear intact on the odontoid view. No suspicious bony lesions. Severe cervical spondylosis. Multilevel facet arthropathy. Severe disc height loss at C4-C5. Anterolisthesis of C3 on C4 measures approximately 3.5 mm. Future Testing and Treatments Planned Pt hopes for MRI after 6 PT visits. Developmental History Developmental History Pt reports 2 soares ago was pushing wheelbarrow and slipped landing on her knees, causing her chin to hit the wheelbarrel edge. Pt feels she had recovered from the fall. She is exercising with an staff development manager surgical appliance fitter 2-3x/week. Pt history of Arthritis, back & neck pain, recent headaches. Did roller derby 10 yrs for funa and stopped 5 yrs ago. 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 Treatment Goals Patient/Caregiver Goals Pt goal is: Learn ex or movements that will help support her neck to prevent injections or surgery. Able to move wood and work in yard without onset of neck and R shoulder pain. Increase strength of R arm. Personal Factors Other Personal Factors That May Effect Lives on [place] independently Therapy/Recovery on [place] and supports her mother. [employer] participation for 10 yrs, ending 5 yrs ago. Musculoskeletal changes ( Anterolisthesis of C3 on C4, disc hgt loss C4-C5, and multilevel facet arthroopathy) . PT-OP-C Subjective Start: 06/20/23 17:20 Freq: Status: Active Protocol: Document 07/24/23 09:12 SP (Rec: 07/24/23 09:50 SP [id number]) OP-PT Subjective Patient Comments Patient Comments Pt reports neck stiff, not sure if slept wrong. Sleeps with pillow under head only. Compliant with HEP. PT-OP-H Neuro Start: 06/20/23 17:20 Freq: Status: Active Protocol: Document 07/18/23 14:36 LRN (Rec: 07/18/23 15:43 LRN [id number]) Deep Tendon Reflex & Clonus Assessment Deep Tendon Reflex Bilateral Brachioradialis Deep Tendon Reflex 2+ Normal Bilateral Tricep Deep Tendon Reflex 2+ Normal Right Bicep Deep Tendon Reflex 1+ Diminished Left Bicep Deep Tendon Reflex 2+ Normal PT-OP-J Posture/Palpation/Skin Start: 06/20/23 17:20 Freq: Status: Active Protocol: Document 07/13/23 09:50 LRN (Rec: 07/13/23 12:47 LRN [id number]) Posture Evaluation Position Standing Head/C-Spine Posture C-Spine Flattened,Forward Head L-Spine Posture Increased Lordosis Shoulder Posture (L) Forward,(L) Elevated Scapula Posture (R) Retracted,(R) Depressed Arm Posture (L) Internally Rotated,(R) Internally Rotated Pelvis Posture Neutral Comments Posture Comments L chest more anterior, (tight on R side of neck), dowagers hump, Chest in L rotation. Palpation Assessment Location R Rhomboids/Infraspinatus Palpation Location R Rhomboids & Infraspinatus. Palpation Details atrophy R Rhomboids, & infraspinatus R UT Palpation Location R UT feels tight, but is atrophied. Palpation Details Atrophy Neck Palpation Location Suboccipital Palpation Details Tingling down arm. PT-OP-K Range of Motion Start: 06/20/23 17:20 Freq: Status: Active Protocol: Document 07/13/23 09:50 LRN (Rec: 07/13/23 12:47 LRN [id number]) Cervical Spine Range of Motion Cervical Spine Active Degrees Testing Position Sitting Flexion 32 Extension 26 Rotation Left 47 Rotation Right 35 Lateral Flexion Left 10 Lateral Flexion Right 18 ROM Limitations Soft Tissue Tightness Comments L SB causes tingling down R arm, R SB noted tightness on L UT. Flex & Ext caused tightness and ache in R shoulder (worse lookking up) PT-OP-M Strength Start: 06/20/23 17:20 Freq: Status: Active Protocol: Document 07/18/23 14:36 LRN (Rec: 07/18/23 15:43 LRN [id number]) Hand Conveyor Feeder Offbearer/Pinch Strength Hand Dominance Hand Dominance Right Hand Strength Right Comments lbs: 47, 35, 42 - avg is 41 lbs k, 16, 19 - avg is 19 kg (Norm for age 50-54 is 29.8 kg ) Left Comments lbs: 53, 50, 47 - avg is 50 lbs k, 22, 22 - avg is 22.7 kgs (Norm for age 50-54 is 26 kg) PT-OP-Q Treatments Start: 06/20/23 17:20 Freq: Status: Active Protocol: Document 07/24/23 09:12 SP (Rec: 07/24/23 09:50 SP [id number]) Therapeutic Exercises Supine Exercises Deep C. neck flexor Kevin Supine Exercise Name Deep C. neck flexor kevin tightening Equipment Used No pillow, towel roll under neck Reps/Minutes 5 SH x 10 Comments Cued gentle CS nod into CS ext , pain/tingle free Sidelying Exercises Open book stretch Sidelying Exercise Name Open book stretch HEP reviewed Equipment Used Pillow and towel roll at neck Reps/Minutes 1 SH x 5 reps Comments cued limit cervical ROM, focus on scapular glide painfree range Sitting Exercises cervical & scap retraction Sitting Exercise Name reviewed for HEP Side bilateral Reps/Minutes 5SH x10 Comments cervical retraction midline- good feedback pain/tingle free Kevin C. Flex Sitting Exercise Name Kevin C. Flex in 2 different ranges (netural, 20 & 40 deg flex) Equipment Used Finger tip pressure at forehead Reps/Minutes 5 SH x 5- painfree Comments Cued elongate posture/scap neutral/CS retraction neutral then gentle isomet Manual Therapy Treatment Soft Tissue Mobilization L SCM Body Location L>R SCM at mastoid process & prox to sternum Mobilization Type Sustained Pressure,Other Intensity/Depth Moderate Body Position Supine Comments gentle STM with instruction on self application pincer knead , sustained pressure with head nod/turn R side of face Body Location MFR R frontal, temporal, lateral face and above ear. Mobilization Type Manual Lymphatic Drainage Intensity/Depth Superficial Body Position Supine R UT Body Location R>L UT, SOR Mobilization Type Strumming,Sustained Pressure Intensity/Depth Superficial Comments good feedback response occiput posterior glide into flexion. Self-Care/Home Management Treatment Education Other Education Time spent anatomy, side sleeping /c pillows support postural alignment. PT-OP-T Assessment and Plan Start: 06/20/23 17:20 Freq: Status: Active Protocol: Document 07/24/23 09:12 SP (Rec: 07/24/23 09:50 SP [id number]) Physical Therapy Assessment Goals Three Impairment Decreased neck strength Impairment Generally 4/5 Short Term Goal (STG) Pt will be educated in a Cervical strengthening HEP. 07/18/23: I/S HEP: Deep C. neck flexor kevin strengthening (neck elongation) & Scapular pinches without R wrist/pinky or head sensation changes/pain . STG Duration 2 wks-07/28/23 progressed Prison Goal (LTG) Improve Cervical strength 1/2 grade with pt able to tolerate her exercise workouts without and increase in neck or R shoulder pain. 07/13/22: I/S HEP: Kevin C. flex strengthening. 07/18/23: I/S HEP: Deep C. neck flexor strengthening. LTG Duration 10 wks-09/22/23 progressed 07/13/23 Two Impairment Decreased R shoulder strength Prison Goal (LTG) Increase R shoulder/UE strength to 5/5 with pt able to move [employer] and work in yard without onset of neck and R shoulder pain. 07/18/23: I/S HEP: Scapular pinches. LTG Duration 10 wks-09/22/23 progressed 07/18/23 One Impairment Pt lacks appropriate self care HEP. Short Term Goal (STG) Pt will be educated in proper nighttime positioning to minimize neck/shoulder pain. STG Duration 2 wks-07/28/23 Prison Goal (LTG) Pt will be educated in HEP for ROM and strengthening of neck /shoulder/upper back that will help support her neck to prevent injections or surgery. 07/21/23: I/S in HEP: Deep C . neck flexor & open book stretch. LTG Duration 10 wks-09/22/23 Assessment Summary Assessment Pt good response to manual with ed self application for home carryover relief. Education during ther ex CS nod/flex neutral scap retraction with elongated posturing improved form and painfree CS flexion isometrics . Physical Therapy Plan Frequency and Duration Frequency of Treatment 2x/Week Duration of treatment (weeks) 10 Plan of Care Start Date 07/13/23 Plan of Care End Date 09/22/23 Therapeutic Interventions Therapeutic Interventions Home Exercise Program,Joint Mobilizations,Manual Therapy, Neuromuscular Re-education, Self-Care/Home Management,Soft Tissue Mobilization,Taping, Therapeutic Activities, Therapeutic Exercises Modalities Cold Pack/Ice Massage,Electric Stimulation,Hot Packs, Paraffin Bath,Traction- Mechanical,Ultrasound Next Visit Focus/Plan Next Note Type Treatment Note Next Visit Plan Issued HEP (deep c. neck flexor & open book), Hold Special C. tests until discuss with referring provider or her physician open mouth x-ray request. NEXT: Cont MFR to R face/head . Educate in proper nighttime positioning and start general UE strengthening w/correct posture. POC: Stabilization of C/S, R shoulder/scapular stabilizers, C. AROM stretch, Postural correction exercises. Pt education sit/stand posture, & body mechanics.
--- NOTE | 2023-08-08 12:34 | PT.OTN ---
Current Diagnoses Other chronic pain (08/08/23) Unspecified osteoarthritis, unspecified site (08/08/23) Cervicalgia (08/08/23) Pain in unspecified finger(s) (08/08/23) Physical Therapy Treatment Note PT-OP-A Visit Information Start: 06/20/23 17:20 Freq: Status: Active Protocol: Document 08/08/23 11:20 LRN (Rec: 08/08/23 12:16 LRN [id number]) Out-Patient Physical Therapy Visit Information Visit Information Visit Type Treatment Note Visit Start Time 11:20 Visit Stop Time 12:05 Visit Number 11/16 Number of OTOLARYNGOLOGY REP Visits 1 Evaluation Information Evaluation Date 07/13/23 Precautions Precautions Pt history of inflammatory arthritis, back and neck pain. Record review: cervical spondylosis, anterolisthesis of cervical spine, ringing in ear, dizziness with lifting and R UE weakness - 06/12/23. PT-OP-B Current Condition Start: 06/20/23 17:20 Freq: Status: Active Protocol: Document 07/13/23 09:50 LRN (Rec: 07/13/23 12:47 LRN [id number]) Current Condition History of Current Condition Onset Date 2 months ago. Current Complaints Pain at back of neck, head, R shoulder & R arm pain. History of Current Condition Pt denies any recent incident that she can recall occuring prior to onset of posterior neck tightness (has always had mobility issues) that has progressively moved into the head causing headaches, and eventually caused pain with any head movement. She also c /o shoulder pain, mostly on the right. 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 Pt also reports a deformed R middle finger, but is most interested in rehab for her neck pain. States MD asked if she wanted therapy for her R middle finger deformity, so she said yes, but that her neck is the main reason for coming to therapy. She reports seeing an [facility] (Dr. Fierro) and was told her she had a pinched nerve. Head pain is much reduced and rated 1-2/10. Prior Treatments and Tests Massage therapy and myofascial work ever other week. X-rays taken (05/10/23): C1 appear intact on the odontoid view. No suspicious bony lesions. Severe cervical spondylosis. Multilevel facet arthropathy. Severe disc height loss at C4-C5. Anterolisthesis of C3 on C4 measures approximately 3.5 mm. Future Testing and Treatments Planned Pt hopes for MRI after 6 PT visits. Developmental History Developmental History Pt reports 2 soares ago was pushing wheelbarrow and slipped landing on her knees, causing her chin to hit the wheelbarrel edge. Pt feels she had recovered from the fall. She is exercising with an undertaker assistant care trainer 2-3x/week. Pt history of Arthritis, back & neck pain, recent headaches. Did [employer] 10 yrs for funa and stopped 5 yrs ago. 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 Treatment Goals Patient/Caregiver Goals Pt goal is: Learn ex or movements that will help support her neck to prevent injections or surgery. Able to move wood and work in yard without onset of neck and R shoulder pain. Increase strength of R arm. Personal Factors Other Personal Factors That May Effect Lives on [place] independently Therapy/Recovery [place] and supports her mother. [employer] Voice[employer] participation for 10 yrs, ending 5 yrs ago. Musculoskeletal changes ( Anterolisthesis of C3 on C4, disc hgt loss C4-C5, and multilevel facet arthroopathy) . PT-OP-C Subjective Start: 06/20/23 17:20 Freq: Status: Active Protocol: Document 08/08/23 11:20 LRN (Rec: 08/08/23 12:16 LRN [id number]) OP-PT Subjective Patient Comments Patient Comments Thinks its getting better, can do more physical activities. Headaches are consistent. Pain is off/on. Today it's good, pain is 3-4/ 10, yesterday was worse with pain 5-6/10. Headaches haven' t gone away. Feels like head is heavy, Pain is achy and dull into head and eyes. PT-OP-H Neuro Start: 06/20/23 17:20 Freq: Status: Active Protocol: Document 07/18/23 14:36 LRN (Rec: 07/18/23 15:43 LRN [id number]) Deep Tendon Reflex & Clonus Assessment Deep Tendon Reflex Bilateral Brachioradialis Deep Tendon Reflex 2+ Normal Bilateral Tricep Deep Tendon Reflex 2+ Normal Right Bicep Deep Tendon Reflex 1+ Diminished Left Bicep Deep Tendon Reflex 2+ Normal PT-OP-J Posture/Palpation/Skin Start: 06/20/23 17:20 Freq: Status: Active Protocol: Document 07/13/23 09:50 LRN (Rec: 07/13/23 12:47 LRN [id number]) Posture Evaluation Position Standing Head/C-Spine Posture C-Spine Flattened,Forward Head L-Spine Posture Increased Lordosis Shoulder Posture (L) Forward,(L) Elevated Scapula Posture (R) Retracted,(R) Depressed Arm Posture (L) Internally Rotated,(R) Internally Rotated Pelvis Posture Neutral Comments Posture Comments L chest more anterior, (tight on R side of neck), dowagers hump, Chest in L rotation. Palpation Assessment Location R Rhomboids/Infraspinatus Palpation Location R Rhomboids & Infraspinatus. Palpation Details atrophy R Rhomboids, & infraspinatus R UT Palpation Location R UT feels tight, but is atrophied. Palpation Details Atrophy Neck Palpation Location Suboccipital Palpation Details Tingling down arm. PT-OP-K Range of Motion Start: 06/20/23 17:20 Freq: Status: Active Protocol: Document 08/08/23 11:20 LRN (Rec: 08/08/23 12:16 LRN [id number]) Cervical Spine Range of Motion Cervical Spine Active Degrees Testing Position Sitting Flexion 10 Extension 18 Rotation Left 45 Rotation Right 33 Lateral Flexion Left 10 Lateral Flexion Right 13 Comments SB causes head dull ache pain and ms tightness. Ext is reported to be more difficult than flexion. PT-OP-M Strength Start: 06/20/23 17:20 Freq: Status: Active Protocol: Document 07/18/23 14:36 LRN (Rec: 07/18/23 15:43 LRN [id number]) Hand Bleach Tester/Pinch Strength Hand Dominance Hand Dominance Right Hand Strength Right Comments lbs: 47, 35, 42 - avg is 41 lbs k, 16, 19 - avg is 19 kg (Norm for age 50-54 is 29.8 kg ) Left Comments lbs: 53, 50, 47 - avg is 50 lbs k, 22, 22 - avg is 22.7 kgs (Norm for age 50-54 is 26 kg) PT-OP-Q Treatments Start: 06/20/23 17:20 Freq: Status: Active Protocol: Document 08/08/23 11:20 LRN (Rec: 08/08/23 12:16 LRN [id number]) Therapeutic Exercises Sidelying Exercises Open book stretch Sidelying Exercise Name Open book stretch HEP reviewed Equipment Used Pillow and towel roll at neck Reps/Minutes 3 SH Comments cued limit cervical ROM, focus on scapular glide painfree range Sitting Exercises cervical & scap retraction Sitting Exercise Name Pushing to ceiling Side bilateral Reps/Minutes 5SH x10 Comments cervical retraction midline- good feedback pain/tingle free Kevin C. Flex Sitting Exercise Name Kevin C. Flex in 2 different ranges (netural, 20 & 40 deg flex) Equipment Used Finger tip pressure at forehead Reps/Minutes 5 SH x 5- painfree Comments Cued elongate posture/scap neutral/CS retraction neutral then gentle isomet Manual Therapy Treatment Soft Tissue Mobilization Suboccipital Body Location Gentle R suboccipital release Mobilization Type Myofascial Release Intensity/Depth Superficial Body Position Supine Head Body Location Top and posterior head Mobilization Type Myofascial Release Intensity/Depth Superficial Body Position Supine Comments Mild restriction on R side. R side of face Body Location MFR R frontal, temporal, lateral face and above ear. Mobilization Type Myofascial Release Intensity/Depth Superficial Body Position Supine Self-Care/Home Management Treatment Education Patient Education Safety Other Education 10' to contact physician office regarding request for Cervical x-rays to assess C1- C2 for possible dysfunction and informed pt of results of phone call. Recommending pt hold next treatment and to contact referring physician for follow up on recommendation for further imaging. PT-OP-T Assessment and Plan Start: 06/20/23 17:20 Freq: Status: Active Protocol: Document 08/08/23 11:20 LRN (Rec: 08/08/23 12:16 LRN [id number]) Physical Therapy Assessment Goals Three Impairment Decreased neck strength Impairment Generally 4/5 Short Term Goal (STG) Pt will be educated in a Cervical strengthening HEP. 07/18/23: I/S HEP: Deep C. neck flexor kevin strengthening (neck elongation) & Scapular pinches without R wrist/pinky or head sensation changes/pain . STG Duration 2 wks-07/28/23 progressed Group Home Goal (LTG) Improve Cervical strength 1/2 grade with pt able to tolerate her exercise workouts without and increase in neck or R shoulder pain. 07/13/22: I/S HEP: Kevin C. flex strengthening. 07/18/23: I/S HEP: Deep C. neck flexor strengthening. LTG Duration 10 wks-09/22/23 progressed 07/13/23 Two Impairment Decreased R shoulder strength Cnc Field Service Engineer Goal (LTG) Increase R shoulder/UE strength to 5/5 with pt able to move [employer] and work in yard without onset of neck and R shoulder pain. 07/18/23: I/S HEP: Scapular pinches. LTG Duration 10 wks-09/22/23 progressed 07/18/23 One Impairment Pt lacks appropriate self care HEP. Short Term Goal (STG) Pt will be educated in proper nighttime positioning to minimize neck/shoulder pain. STG Duration 2 wks-07/28/23 Group Home Goal (LTG) Pt will be educated in HEP for ROM and strengthening of neck /shoulder/upper back that will help support her neck to prevent injections or surgery. 07/21/23: I/S in HEP: Deep C . neck flexor & open book stretch. LTG Duration 10 wks-09/22/23 Assessment Summary Assessment 52 yo female with mechanical dysfunction of the cervical ( C3-C5) and thoracic spine, R shoulder, and intrascapular pain (C3-C7). Possible C1-C2 dysfunction, held further assessment due to concerns of stability. Pt's cervical mobility has not improved. After MFR of R side of head, she shows improved left C. rot ability but still limited with R rot. Headaches persist . Physical Therapy Plan Frequency and Duration Frequency of Treatment 2x/Week Duration of treatment (weeks) 10 Plan of Care Start Date 07/13/23 Plan of Care End Date 09/22/23 Other Referrals/Consults Referrals/Consults Recommended Recommend Open mouth X-ray to assess for C1-C2 dysfunction. Next Visit Focus/Plan Next Note Type Treatment Note Next Visit Plan Check for referring physician response. Issue HEP if appropriate deep c. neck flexor & ?open book, Hold Special C. tests until discuss with referring provider or her physician open mouth x-ray request. NEXT: Cont MFR to R face/head . Educate in proper nighttime positioning and start general UE strengthening w/correct posture. POC: Stabilization of C/S, R shoulder/scapular stabilizers, C. AROM stretch, Postural correction exercises. Pt education sit/stand posture, & body mechanics.
--- NOTE | 2023-08-16 09:45 | PT.OTN ---
Current Diagnoses Other chronic pain (08/16/23) Unspecified osteoarthritis, unspecified site (08/16/23) Cervicalgia (08/16/23) Pain in unspecified finger(s) (08/16/23) Physical Therapy Treatment Note PT-OP-A Visit Information Start: 06/20/23 17:20 Freq: Status: Active Protocol: Document 08/16/23 09:04 SP (Rec: 08/16/23 09:48 SP [id number]) Out-Patient Physical Therapy Visit Information Visit Information Visit Type Treatment Note Visit Start Time 09:04 Visit Stop Time 09:45 Visit Number 12/17 Number of MEAT CURER Visits 1 Evaluation Information Evaluation Date 07/13/23 Precautions Precautions Pt history of inflammatory arthritis, back and neck pain. Record review: cervical spondylosis, anterolisthesis of cervical spine, ringing in ear, dizziness with lifting and R UE weakness - 06/12/23. 08/15/23 CS xray imaging: Moderate degenerative changes and anterolisthesis of C3 on C4 and C7 on T1. If there is high concern for further derangement, consider MRI evaluation. PT-OP-B Current Condition Start: 06/20/23 17:20 Freq: Status: Active Protocol: Document 07/13/23 09:50 LRN (Rec: 07/13/23 12:47 LRN [id number]) Current Condition History of Current Condition Onset Date 2 months ago. Current Complaints Pain at back of neck, head, R shoulder & R arm pain. History of Current Condition Pt denies any recent incident that she can recall occuring prior to onset of posterior neck tightness (has always had mobility issues) that has progressively moved into the head causing headaches, and eventually caused pain with any head movement. She also c /o shoulder pain, mostly on the right. Her pain is now slowly lessening, with changes made to her exercise workouts of magnetic tester weights and reps during exercise. Pt also reports a deformed R middle finger, but is most interested in rehab for her neck pain. States asked if she wanted therapy for her R middle finger deformity, so she said yes, but that her neck is the main reason for coming to therapy. She reports seeing an [facility] (Dr. Fierro) and was told her she had a pinched nerve. Head pain is much reduced and rated 1-2/10. Prior Treatments and Tests Massage therapy and myofascial work ever other week. X-rays taken (05/10/23): C1 appear intact on the odontoid view. No suspicious bony lesions. Severe cervical spondylosis. Multilevel facet arthropathy. Severe disc height loss at C4-C5. Anterolisthesis of C3 on C4 measures approximately 3.5 mm. Future Testing and Treatments Planned Pt hopes for MRI after 6 PT visits. Developmental History Developmental History Pt reports 2 soares ago was pushing wheelbarrow and slipped landing on her knees, causing her chin to hit the wheelbarrel edge. Pt feels she had recovered from the fall. She is exercising with an emissions testing technician assistive technology trainer 2-3x/week. Pt history of Arthritis, back & neck pain, recent headaches. Did [employer] 10 yrs for funa and stopped 5 yrs ago. 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 Treatment Goals Patient/Caregiver Goals Pt goal is: Learn ex or movements that will help support her neck to prevent injections or surgery. Able to move wood and work in yard without onset of neck and R shoulder pain. Increase strength of R arm. Personal Factors Other Personal Factors That May Effect Lives on [place] independently Therapy/Recovery on [address] [place] and supports her mother. [employer] participation for 10 yrs, ending 5 yrs ago. Musculoskeletal changes ( Anterolisthesis of C3 on C4, disc hgt loss C4-C5, and multilevel facet arthroopathy) . PT-OP-C Subjective Start: 06/20/23 17:20 Freq: Status: Active Protocol: Document 08/16/23 09:04 SP (Rec: 08/16/23 09:48 SP [id number]) OP-PT Subjective Patient Comments Patient Comments Pt reports same neck pain in to head mainly jr looking up and to R and sometimes into R posterolateral arm. Goes into R eye, side of face and ringing into R ear. SHe reports has a friend that helps train, did obliques with eccentric BLE lowering control against resistance pressure, and lateral side bend standing with wt. PT-OP-H Neuro Start: 06/20/23 17:20 Freq: Status: Active Protocol: Document 07/18/23 14:36 LRN (Rec: 07/18/23 15:43 LRN [id number]) Deep Tendon Reflex & Clonus Assessment Deep Tendon Reflex Bilateral Brachioradialis Deep Tendon Reflex 2+ Normal Bilateral Tricep Deep Tendon Reflex 2+ Normal Right Bicep Deep Tendon Reflex 1+ Diminished Left Bicep Deep Tendon Reflex 2+ Normal PT-OP-J Posture/Palpation/Skin Start: 06/20/23 17:20 Freq: Status: Active Protocol: Document 07/13/23 09:50 LRN (Rec: 07/13/23 12:47 LRN [id number]) Posture Evaluation Position Standing Head/C-Spine Posture C-Spine Flattened,Forward Head L-Spine Posture Increased Lordosis Shoulder Posture (L) Forward,(L) Elevated Scapula Posture (R) Retracted,(R) Depressed Arm Posture (L) Internally Rotated,(R) Internally Rotated Pelvis Posture Neutral Comments Posture Comments L chest more anterior, (tight on R side of neck), dowagers hump, Chest in L rotation. Palpation Assessment Location R Rhomboids/Infraspinatus Palpation Location R Rhomboids & Infraspinatus. Palpation Details atrophy R Rhomboids, & infraspinatus R UT Palpation Location R UT feels tight, but is atrophied. Palpation Details Atrophy Neck Palpation Location Suboccipital Palpation Details Tingling down arm. PT-OP-K Range of Motion Start: 06/20/23 17:20 Freq: Status: Active Protocol: Document 08/08/23 11:20 LRN (Rec: 08/08/23 12:16 LRN [id number]) Cervical Spine Range of Motion Cervical Spine Active Degrees Testing Position Sitting Flexion 10 Extension 18 Rotation Left 45 Rotation Right 33 Lateral Flexion Left 10 Lateral Flexion Right 13 Comments SB causes head dull ache pain and ms tightness. Ext is reported to be more difficult than flexion. PT-OP-M Strength Start: 06/20/23 17:20 Freq: Status: Active Protocol: Document 07/18/23 14:36 LRN (Rec: 07/18/23 15:43 LRN [id number]) Hand Woodwind Instruments Inspector/Pinch Strength Hand Dominance Hand Dominance Right Hand Strength Right Comments lbs: 47, 35, 42 - avg is 41 lbs k, 16, 19 - avg is 19 kg (Norm for age 50-54 is 29.8 kg ) Left Comments lbs: 53, 50, 47 - avg is 50 lbs k, 22, 22 - avg is 22.7 kgs (Norm for age 50-54 is 26 kg) PT-OP-Q Treatments Start: 06/20/23 17:20 Freq: Status: Active Protocol: Document 08/16/23 09:04 SP (Rec: 08/16/23 09:48 SP [id number]) Therapeutic Exercises Supine Exercises Deep C. neck flexor Kevin Supine Exercise Name Deep C. neck flexor kevin tightening Equipment Used No pillow, towel roll under neck Reps/Minutes 5 SH x 10 Comments Cued gentle CS nod into CS ext , pain/tingle free Sidelying Exercises Open book stretch Sidelying Exercise Name Open book stretch HEP reviewed Equipment Used Pillow and towel roll at neck Reps/Minutes 3 SH Comments cued limit cervical ROM, focus on scapular glide painfree range Sitting Exercises cervical & scap retraction Sitting Exercise Name Top of Head Pushing to ceiling Side bilateral Reps/Minutes 5SH x10 Comments cervical retraction midline- good feedback pain/tingle free Kevin C. Flex Sitting Exercise Name Kevin C. Flex in 2 different ranges (netural, 20 & 40 deg flex) Equipment Used Finger tip pressure at forehead Reps/Minutes 5 SH x 5- painfree Comments Cued elongate posture/scap neutral/CS retraction neutral then gentle isomet Standing Exercises hip hinge trunk flexion dowel Standing Exercise Name Ther Act 08/16 wall posture Standing Exercise Name trialed in PT for carryover posture seated/stand Resistance declined HO Equipment Used small towel roll behind neck Reps/Minutes 5sec x5 reps Comments Cued CS retraction/head nod flex neutral, scap retraction, neutral LS Therapeutic Activity Therapeutic Activity hip hinge trunk flexion Name Posture mobility: 1. STS 2. Squat tack picker laundry basket. Reps/Minutes 8 reps Comments -dowel along spine hip hinge and squat -Improved CS retraction neutral and hip hinge after wall posture body posi. Manual Therapy Treatment Soft Tissue Mobilization Suboccipital Body Location Gentle R>L suboccipital release Mobilization Type Myofascial Release Intensity/Depth Superficial Body Position Supine Head Body Location Top and posterior head Mobilization Type Myofascial Release Intensity/Depth Superficial Body Position Supine Comments Mild restriction on R side. L SCM Body Location L>R SCM at mastoid process & prox to sternum, Scalene Mobilization Type Rolling,Sustained Pressure, Other Intensity/Depth Moderate Body Position Supine Comments gentle STM with instruction on self application pincer knead , sustained pressure with head nod/turn R side of face Body Location MFR R frontalis, temporalis, lateral face, ear pull Mobilization Type Myofascial Release,Sustained Pressure,Other Intensity/Depth Superficial Body Position Supine R UT Body Location R>L UT, SOR Mobilization Type Strumming,Sustained Pressure Intensity/Depth Superficial Comments good feedback response occiput posterior glide into flexion. Self-Care/Home Management Treatment Education Patient Education Body Mechanics,Pain Management ,Posture Other Education Education provided with manual , self application MWM SCM, TMJ external and intraoral to support decreased jaw and submandible musculature. PT-OP-T Assessment and Plan Start: 06/20/23 17:20 Freq: Status: Active Protocol: Document 08/16/23 09:04 SP (Rec: 08/16/23 09:48 SP [id number]) Physical Therapy Assessment Goals Three Impairment Decreased neck strength Impairment Generally 4/5 Short Term Goal (STG) Pt will be educated in a Cervical strengthening HEP. 07/18/23: I/S HEP: Deep C. neck flexor kevin strengthening (neck elongation) & Scapular pinches without R wrist/pinky or head sensation changes/pain . 08/16/23: progressing CS positioning during wall posture, sit/stand/mobility transfers/picking up items. STG Duration 2 wks-07/28/23 progressed Electrical Designer Drafter Goal (LTG) Improve Cervical strength 1/2 grade with pt able to tolerate her exercise workouts without and increase in neck or R shoulder pain. 07/13/22: I/S HEP: Kevin C. flex strengthening. 07/18/23: I/S HEP: Deep C. neck flexor strengthening. LTG Duration 10 wks-09/22/23 progressed 07/13/23 Two Impairment Decreased R shoulder strength Shelter Goal (LTG) Increase R shoulder/UE strength to 5/5 with pt able to move winter wood and work in yard without onset of neck and R shoulder pain. 07/18/23: I/S HEP: Scapular pinches. LTG Duration 10 wks-09/22/23 progressed 07/18/23 One Impairment Pt lacks appropriate self care HEP. Short Term Goal (STG) Pt will be educated in proper nighttime positioning to minimize neck/shoulder pain. STG Duration 2 wks-07/28/23 Electrical Designer Drafter Goal (LTG) Pt will be educated in HEP for ROM and strengthening of neck /shoulder/upper back that will help support her neck to prevent injections or surgery. 07/21/23: I/S in HEP: Deep C . neck flexor & open book stretch. 08/16/23: trialed wall posture and use dowel for postural alignment, no HOs given. CS isometrics. LTG Duration 10 wks-09/22/23 progressing Assessment Summary Assessment Pt reports less tension and understanding of self application on carryover STMs for pain control and improve mobility. Good response to use of wall for postural feedback during CS HEP and corrections during sit to stand, sit and standing posture less tension on neck. Physical Therapy Plan Frequency and Duration Frequency of Treatment 2x/Week Duration of treatment (weeks) 10 Plan of Care Start Date 07/13/23 Plan of Care End Date 09/22/23 Therapeutic Interventions Therapeutic Interventions Home Exercise Program,Joint Mobilizations,Manual Therapy, Neuromuscular Re-education, Self-Care/Home Management,Soft Tissue Mobilization,Taping, Therapeutic Activities, Therapeutic Exercises Modalities Cold Pack/Ice Massage,Electric Stimulation,Hot Packs, Paraffin Bath,Traction- Mechanical,Ultrasound Other Referrals/Consults Referrals/Consults Recommended Recommend Open mouth X-ray to assess for C1-C2 dysfunction. Next Visit Focus/Plan Next Note Type Treatment Note Next Visit Plan Check for referring physician response. Hold Special C. tests until discuss with referring provider or her physician open mouth x-ray request. NEXT: Review wall posture and mobility carryover. Educate in proper nighttime positioning and start general UE strengthening w/correct posture. POC: Stabilization of C/S, R shoulder/scapular stabilizers, C. AROM stretch, Postural correction exercises. Pt education sit/stand posture, & body mechanics.
--- NOTE | 2023-08-22 12:51 | PT.OTN ---
Current Diagnoses Other chronic pain (08/22/23) Unspecified osteoarthritis, unspecified site (08/22/23) Cervicalgia (08/22/23) Pain in unspecified finger(s) (08/22/23) Physical Therapy Treatment Note PT-OP-A Visit Information Start: 06/20/23 17:20 Freq: Status: Active Protocol: Document 08/22/23 11:20 LRN (Rec: 08/22/23 12:50 LRN [id number]) Out-Patient Physical Therapy Visit Information Visit Information Visit Type Treatment Note Visit Note Brief review of C/S X-ray results to start. Visit Start Time 11:20 Visit Stop Time 11:58 Visit Number 01/16 Evaluation Information Evaluation Date 07/13/23 Precautions Precautions Pt history of inflammatory arthritis, back and neck pain. Record review: cervical spondylosis, anterolisthesis of cervical spine, ringing in ear, dizziness with lifting and R UE weakness - 06/12/23. 08/15/23 x-ray: Moderate degenerative changes and anterolisthesis of C3 on C4 and C7 on T1. PT-OP-B Current Condition Start: 06/20/23 17:20 Freq: Status: Active Protocol: Document 07/13/23 09:50 LRN (Rec: 07/13/23 12:47 LRN [id number]) Current Condition History of Current Condition Onset Date 2 months ago. Current Complaints Pain at back of neck, head, R shoulder & R arm pain. History of Current Condition Pt denies any recent incident that she can recall occuring prior to onset of posterior neck tightness (has always had mobility issues) that has progressively moved into the head causing headaches, and eventually caused pain with any head movement. She also c /o shoulder pain, mostly on the right. Her pain is now slowly lessening, with changes made to her exercise workouts of station operator weights and reps during exercise. Pt also reports a deformed R middle finger, but is most interested in rehab for her neck pain. States MD asked if she wanted therapy for her R middle finger deformity, so she said yes, but that her neck is the main reason for coming to therapy. She reports seeing an [facility] (Dr. Fierro) and was told her she had a pinched nerve. Head pain is much reduced and rated 1-2/10. Prior Treatments and Tests Massage therapy and myofascial work ever other week. X-rays taken (05/10/23): C1 appear intact on the odontoid view. No suspicious bony lesions. Severe cervical spondylosis. Multilevel facet arthropathy. Severe disc height loss at C4-C5. Anterolisthesis of C3 on C4 measures approximately 3.5 mm. Future Testing and Treatments Planned Pt hopes for MRI after 6 PT visits. Developmental History Developmental History Pt reports 2 soares ago was pushing wheelbarrow and slipped landing on her knees, causing her chin to hit the wheelbarrel edge. Pt feels she had recovered from the fall. She is exercising with an news reporter education trainer 2-3x/week. Pt history of Arthritis, back & neck pain, recent headaches. Did [employer] 10 yrs for funa and stopped 5 yrs ago. 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 Treatment Goals Patient/Caregiver Goals Pt goal is: Learn ex or movements that will help support her neck to prevent injections or surgery. Able to move wood and work in yard without onset of neck and R shoulder pain. Increase strength of R arm. Personal Factors Other Personal Factors That May Effect Lives on [address] independently Therapy/Recovery on [address] and supports her mother. [employer] participation for 10 yrs, ending 5 yrs ago. Musculoskeletal changes ( Anterolisthesis of C3 on C4, disc hgt loss C4-C5, and multilevel facet arthroopathy) . PT-OP-C Subjective Start: 06/20/23 17:20 Freq: Status: Active Protocol: Document 08/22/23 11:20 LRN (Rec: 08/22/23 12:50 LRN [id number]) OP-PT Subjective Patient Comments Patient Comments X-rays taken last week, MRI scheduled for Mon (PT after MRI). PT-OP-H Neuro Start: 06/20/23 17:20 Freq: Status: Active Protocol: Document 07/18/23 14:36 LRN (Rec: 07/18/23 15:43 LRN [id number]) Deep Tendon Reflex & Clonus Assessment Deep Tendon Reflex Bilateral Brachioradialis Deep Tendon Reflex 2+ Normal Bilateral Tricep Deep Tendon Reflex 2+ Normal Right Bicep Deep Tendon Reflex 1+ Diminished Left Bicep Deep Tendon Reflex 2+ Normal PT-OP-J Posture/Palpation/Skin Start: 06/20/23 17:20 Freq: Status: Active Protocol: Document 07/13/23 09:50 LRN (Rec: 07/13/23 12:47 LRN [id number]) Posture Evaluation Position Standing Head/C-Spine Posture C-Spine Flattened,Forward Head L-Spine Posture Increased Lordosis Shoulder Posture (L) Forward,(L) Elevated Scapula Posture (R) Retracted,(R) Depressed Arm Posture (L) Internally Rotated,(R) Internally Rotated Pelvis Posture Neutral Comments Posture Comments L chest more anterior, (tight on R side of neck), dowagers hump, Chest in L rotation. Palpation Assessment Location R Rhomboids/Infraspinatus Palpation Location R Rhomboids & Infraspinatus. Palpation Details atrophy R Rhomboids, & infraspinatus R UT Palpation Location R UT feels tight, but is atrophied. Palpation Details Atrophy Neck Palpation Location Suboccipital Palpation Details Tingling down arm. PT-OP-K Range of Motion Start: 06/20/23 17:20 Freq: Status: Active Protocol: Document 08/08/23 11:20 LRN (Rec: 08/08/23 12:16 LRN [id number]) Cervical Spine Range of Motion Cervical Spine Active Degrees Testing Position Sitting Flexion 10 Extension 18 Rotation Left 45 Rotation Right 33 Lateral Flexion Left 10 Lateral Flexion Right 13 Comments SB causes head dull ache pain and ms tightness. Ext is reported to be more difficult than flexion. PT-OP-M Strength Start: 06/20/23 17:20 Freq: Status: Active Protocol: Document 07/18/23 14:36 LRN (Rec: 07/18/23 15:43 LRN [id number]) Hand Instrument Maker Apprentice/Pinch Strength Hand Dominance Hand Dominance Right Hand Strength Right Comments lbs: 47, 35, 42 - avg is 41 lbs k, 16, 19 - avg is 19 kg (Norm for age 50-54 is 29.8 kg ) Left Comments lbs: 53, 50, 47 - avg is 50 lbs k, 22, 22 - avg is 22.7 kgs (Norm for age 50-54 is 26 kg) PT-OP-Q Treatments Start: 06/20/23 17:20 Freq: Status: Active Protocol: Document 08/22/23 11:20 LRN (Rec: 08/22/23 12:50 LRN [id number]) Therapeutic Exercises Supine Exercises Deep C. neck flexor Kevin Supine Exercise Name Deep C. neck flexor kevin tightening Equipment Used No pillow, towel roll under neck Reps/Minutes 5 SH x 4' Comments Cued gentle CS nod into flex, pain/tingle free Sidelying Exercises Open book stretch Sidelying Exercise Name Open book stretch (HEP) Side bilateral Equipment Used Pillow and towel roll at neck Reps/Minutes 3 SH Comments cued painfree cervical ROM, focus on scapular glide, C/S & T/S rot Standing Exercises wall posture Standing Exercise Name Wall posture seated/stand Resistance declined HO Equipment Used small towel roll behind neck Reps/Minutes 5sec x5 reps Comments Cued CS retraction/head nod flex neutral, scap retraction, neutral LS Manual Therapy Treatment Soft Tissue Mobilization Paraspinals Body Location Cervical Paraspinals Mobilization Type Strumming Intensity/Depth Moderate Suboccipital Body Location Kal Suboccipital release Mobilization Type Myofascial Release Intensity/Depth Moderate Body Position Hooklying Head Body Location R side, top and side of head Mobilization Type Myofascial Release Intensity/Depth Superficial Body Position Supine Comments Mild restriction on R side. R side of face Body Location MFR R frontalis, temporalis, lateral face, ear pull Mobilization Type Myofascial Release,Sustained Pressure,Other Intensity/Depth Superficial Body Position Supine PT-OP-T Assessment and Plan Start: 06/20/23 17:20 Freq: Status: Active Protocol: Document 08/22/23 11:20 LRN (Rec: 08/22/23 12:50 LRN [id number]) Physical Therapy Assessment Goals Three Impairment Decreased neck strength Impairment Generally 4/5 Short Term Goal (STG) Pt will be educated in a Cervical strengthening HEP. 07/18/23: I/S HEP: Deep C. neck flexor kevin strengthening (neck elongation) & Scapular pinches without R wrist/pinky or head sensation changes/pain . 08/16/23: progressing CS positioning during wall posture, sit/stand/mobility transfers/picking up items. STG Duration 2 wks-07/28/23 progressed Jail Goal (LTG) Improve Cervical strength 1/2 grade with pt able to tolerate her exercise workouts without and increase in neck or R shoulder pain. 07/13/22: I/S HEP: Kevin C. flex strengthening. 07/18/23: I/S HEP: Deep C. neck flexor strengthening. LTG Duration 10 wks-09/22/23 progressed 07/13/23 Two Impairment Decreased R shoulder strength Jail Goal (LTG) Increase R shoulder/UE strength to 5/5 with pt able to move winter wood and work in yard without onset of neck and R shoulder pain. 07/18/23: I/S HEP: Scapular pinches. LTG Duration 10 wks-09/22/23 progressed 07/18/23 One Impairment Pt lacks appropriate self care HEP. Short Term Goal (STG) Pt will be educated in proper nighttime positioning to minimize neck/shoulder pain. STG Duration 2 wks-07/28/23 Human Resources Executive Goal (LTG) Pt will be educated in HEP for ROM and strengthening of neck /shoulder/upper back that will help support her neck to prevent injections or surgery. 07/21/23: I/S in HEP: Deep C . neck flexor & open book stretch. 08/16/23: trialed wall posture and use dowel for postural alignment, no HOs given. CS isometrics. LTG Duration 10 wks-09/22/23 progressing Assessment Summary Assessment 52 yo female with mechanical dysfunction of the cervical ( anterolisthesis C3onC4, C7onT1 ) and thoracic spine, R shoulder, and intrascapular pain (C3-C7). X-rays taken ( see report: normal C1onC2 alignment) and MRI scheduled . Posture educ helpful, review of mobility carryover is needed. Able to do open book stretch w/o head pain. Her head/facial tension has normalized. She is limited in neck mobility due to mechanical changes in spine. C/S stab and STM needed. Physical Therapy Plan Frequency and Duration Frequency of Treatment 2x/Week Duration of treatment (weeks) 10 Plan of Care Start Date 07/13/23 Plan of Care End Date 09/22/23 Next Visit Focus/Plan Next Note Type Treatment Note Next Visit Plan NEXT: Review posture with mobility carryover. Educate in proper nighttime positioning. Deep C. neck flexor strengthening. Start general UE strengthening w/correct posture. POC: Stabilization of C/S, R shoulder/scapular stabilizers, C. AROM stretch, Postural correction exercises. Pt education sit/stand posture, & body mechanics.
--- NOTE | 2023-08-25 11:15 | PT.OTN ---
Current Diagnoses Other chronic pain (08/25/23) Unspecified osteoarthritis, unspecified site (08/25/23) Cervicalgia (08/25/23) Pain in unspecified finger(s) (08/25/23) Physical Therapy Treatment Note PT-OP-A Visit Information Start: 06/20/23 17:20 Freq: Status: Active Protocol: Document 08/25/23 10:35 SP (Rec: 08/25/23 11:20 SP [id number]) Out-Patient Physical Therapy Visit Information Visit Information Visit Type Treatment Note Visit Start Time 10:35 Visit Stop Time 11:15 Visit Number 02/16 Number of FLEECE TIER Visits 1 Evaluation Information Evaluation Date 07/13/23 Precautions Precautions Pt history of inflammatory arthritis, back and neck pain. Record review: cervical spondylosis, anterolisthesis of cervical spine, ringing in ear, dizziness with lifting and R UE weakness - 06/12/23. 08/15/23 x-ray: Moderate degenerative changes and anterolisthesis of C3 on C4 and C7 on T1. PT-OP-B Current Condition Start: 06/20/23 17:20 Freq: Status: Active Protocol: Document 07/13/23 09:50 LRN (Rec: 07/13/23 12:47 LRN [id number]) Current Condition History of Current Condition Onset Date 2 months ago. Current Complaints Pain at back of neck, head, R shoulder & R arm pain. History of Current Condition Pt denies any recent incident that she can recall occuring prior to onset of posterior neck tightness (has always had mobility issues) that has progressively moved into the head causing headaches, and eventually caused pain with any head movement. She also c /o shoulder pain, mostly on the right. 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 Pt also reports a deformed R middle finger, but is most interested in rehab for her neck pain. States MD asked if she wanted therapy for her R middle finger deformity, so she said yes, but that her neck is the main reason for coming to therapy. She reports seeing an [facility] (Dr. Fierro) and was told her she had a pinched nerve. Head pain is much reduced and rated 1-2/10. Prior Treatments and Tests Massage therapy and myofascial work ever other week. X-rays taken (05/10/23): C1 appear intact on the odontoid view. No suspicious bony lesions. Severe cervical spondylosis. Multilevel facet arthropathy. Severe disc height loss at C4-C5. Anterolisthesis of C3 on C4 measures approximately 3.5 mm. Future Testing and Treatments Planned Pt hopes for MRI after 6 PT visits. Developmental History Developmental History Pt reports 2 soares ago was pushing wheelbarrow and slipped landing on her knees, causing her chin to hit the wheelbarrel edge. Pt feels she had recovered from the fall. She is exercising with an welt maker application trainer 2-3x/week. Pt history of Arthritis, back & neck pain, recent headaches. Did [email or web address] 10 yrs for funa and stopped 5 yrs ago. 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 Treatment Goals Patient/Caregiver Goals Pt goal is: Learn ex or movements that will help support her neck to prevent injections or surgery. Able to move wood and work in yard without onset of neck and R shoulder pain. Increase strength of R arm. Personal Factors Other Personal Factors That May Effect Lives on [address] independently Therapy/Recovery on [place] acres and supports her mother. 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 Musculoskeletal changes ( Anterolisthesis of C3 on C4, disc hgt loss C4-C5, and multilevel facet arthroopathy) . PT-OP-C Subjective Start: 06/20/23 17:20 Freq: Status: Active Protocol: Document 08/25/23 10:35 SP (Rec: 08/25/23 11:20 SP [id number]) OP-PT Subjective Patient Comments Patient Comments Pt reports neck pain little less, has been more mindful of neck posture more retracted back and maybe helping neck, posture feels better. Had MRI if neck this am, will find out what results are later today. PT-OP-H Neuro Start: 06/20/23 17:20 Freq: Status: Active Protocol: Document 07/18/23 14:36 LRN (Rec: 07/18/23 15:43 LRN [id number]) Deep Tendon Reflex & Clonus Assessment Deep Tendon Reflex Bilateral Brachioradialis Deep Tendon Reflex 2+ Normal Bilateral Tricep Deep Tendon Reflex 2+ Normal Right Bicep Deep Tendon Reflex 1+ Diminished Left Bicep Deep Tendon Reflex 2+ Normal PT-OP-J Posture/Palpation/Skin Start: 06/20/23 17:20 Freq: Status: Active Protocol: Document 07/13/23 09:50 LRN (Rec: 07/13/23 12:47 LRN [id number]) Posture Evaluation Position Standing Head/C-Spine Posture C-Spine Flattened,Forward Head L-Spine Posture Increased Lordosis Shoulder Posture (L) Forward,(L) Elevated Scapula Posture (R) Retracted,(R) Depressed Arm Posture (L) Internally Rotated,(R) Internally Rotated Pelvis Posture Neutral Comments Posture Comments L chest more anterior, (tight on R side of neck), dowagers hump, Chest in L rotation. Palpation Assessment Location R Rhomboids/Infraspinatus Palpation Location R Rhomboids & Infraspinatus. Palpation Details atrophy R Rhomboids, & infraspinatus R UT Palpation Location R UT feels tight, but is atrophied. Palpation Details Atrophy Neck Palpation Location Suboccipital Palpation Details Tingling down arm. PT-OP-K Range of Motion Start: 06/20/23 17:20 Freq: Status: Active Protocol: Document 08/08/23 11:20 LRN (Rec: 08/08/23 12:16 LRN [id number]) Cervical Spine Range of Motion Cervical Spine Active Degrees Testing Position Sitting Flexion 10 Extension 18 Rotation Left 45 Rotation Right 33 Lateral Flexion Left 10 Lateral Flexion Right 13 Comments SB causes head dull ache pain and ms tightness. Ext is reported to be more difficult than flexion. PT-OP-M Strength Start: 06/20/23 17:20 Freq: Status: Active Protocol: Document 07/18/23 14:36 LRN (Rec: 07/18/23 15:43 LRN [id number]) Hand Mechanical Repair Worker/Pinch Strength Hand Dominance Hand Dominance Right Hand Strength Right Comments lbs: 47, 35, 42 - avg is 41 lbs k, 16, 19 - avg is 19 kg (Norm for age 50-54 is 29.8 kg ) Left Comments lbs: 53, 50, 47 - avg is 50 lbs k, 22, 22 - avg is 22.7 kgs (Norm for age 50-54 is 26 kg) PT-OP-Q Treatments Start: 06/20/23 17:20 Freq: Status: Active Protocol: Document 08/25/23 10:35 SP (Rec: 08/25/23 11:20 SP [id number]) Therapeutic Exercises Supine Exercises shld HABD Supine Exercise Name added to HEP, declined HO Side bilateral Resistance AROM> 1# DB Reps/Minutes x5 reps Comments improve chin tuck, cued x1 maintain, good scap correction - no neck/face str shld FF Supine Exercise Name added to HEP, declined HO Side bilateral Resistance AROM then dowel 2# wt, 1>2# DB Reps/Minutes x8 reps each resistance Comments good chin tuck, no neck/face muscle tension Deep C. neck flexor Kevin Supine Exercise Name Deep C. neck flexor kevin tightening Equipment Used No pillow, small needed towel roll under neck Reps/Minutes 5 SH x 4 reps, then brief lift Comments Cued gentle CS nod into flex, no pain neck or face Manual Therapy Treatment Soft Tissue Mobilization Paraspinals Body Location Cervical Paraspinals Mobilization Type Strumming Intensity/Depth Moderate Suboccipital Body Location Kal Suboccipital release Mobilization Type Myofascial Release Intensity/Depth Moderate Body Position Hooklying Head Body Location R>L side, top and side of head Mobilization Type Myofascial Release Intensity/Depth Superficial Body Position Supine Comments Mild restriction on R side. L SCM Body Location R>L SCM at mastoid process & prox to sternum, Scalene Mobilization Type Rolling,Sustained Pressure, Other Intensity/Depth Moderate Body Position Supine Comments gentle STM with instruction on self application pincer knead , sustained pressure with head nod/turn R side of face Body Location MFR R>L temporalis, ear pull Mobilization Type Myofascial Release,Sustained Pressure,Other Intensity/Depth Superficial Body Position Supine Self-Care/Home Management Treatment Education Patient Education Body Mechanics,Pain Management ,Posture Other Education 08/25/23: discussed side sleeping pillow support BLEs/ behind back review and towel roll under neck in pillow case added support. PT-OP-T Assessment and Plan Start: 06/20/23 17:20 Freq: Status: Active Protocol: Document 08/25/23 10:35 SP (Rec: 08/25/23 11:20 SP [id number]) Physical Therapy Assessment Goals Three Impairment Decreased neck strength Impairment Generally 4/5 Short Term Goal (STG) Pt will be educated in a Cervical strengthening HEP. 07/18/23: I/S HEP: Deep C. neck flexor kevin strengthening (neck elongation) & Scapular pinches without R wrist/pinky or head sensation changes/pain . 08/16/23: progressing CS positioning during wall posture, sit/stand/mobility transfers/picking up items. STG Duration 2 wks-07/28/23 progressed Correction Goal (LTG) Improve Cervical strength 1/2 grade with pt able to tolerate her exercise workouts without and increase in neck or R shoulder pain. 07/13/22: I/S HEP: Kevin C. flex strengthening. 07/18/23: I/S HEP: Deep C. neck flexor strengthening. LTG Duration 10 wks-09/22/23 progressed 07/13/23 Two Impairment Decreased R shoulder strength Nutrient Management Specialist Goal (LTG) Increase R shoulder/UE strength to 5/5 with pt able to move winter [employer] and work in yard without onset of neck and R shoulder pain. 07/18/23: I/S HEP: Scapular pinches. LTG Duration 10 wks-09/22/23 progressed 07/18/23 One Impairment Pt lacks appropriate self care HEP. Short Term Goal (STG) Pt will be educated in proper nighttime positioning to minimize neck/shoulder pain. 08/25/23: discussed side sleeping pillow support BLEs/ behind back review and towel roll under neck in pillow case added support. STG Duration 2 wks-07/28/23 progressing 08/24 Nutrient Management Specialist Goal (LTG) Pt will be educated in HEP for ROM and strengthening of neck /shoulder/upper back that will help support her neck to prevent injections or surgery. 07/21/23: I/S in HEP: Deep C . neck flexor & open book stretch. 08/16/23: trialed wall posture and use dowel for postural alignment, no HOs given. CS isometrics. 08/25/23: added CS chin tuck lift, CS neutral FF and HABD supine LTG Duration 10 wks-09/22/23 progressing 08/25/23 Assessment Summary Assessment Pt good response to manual, neck/head more neutral. Improved chin tuck and allowance lift/unweight off table for HEP. Added CS neutral with light wt FF * HABD for progression CS and UE strengthening with good feedback with self corrections post ed and cuing. Discussed towel roll bottom pillowcase for neck support for lessening stiff when wakes up, sidesleeping. Good understanding. Pt reports painfree and mob supported leaving. Physical Therapy Plan Frequency and Duration Frequency of Treatment 2x/Week Duration of treatment (weeks) 10 Plan of Care Start Date 07/13/23 Plan of Care End Date 09/22/23 Therapeutic Interventions Therapeutic Interventions Home Exercise Program,Joint Mobilizations,Manual Therapy, Neuromuscular Re-education, Self-Care/Home Management,Soft Tissue Mobilization,Taping, Therapeutic Activities, Therapeutic Exercises Modalities Cold Pack/Ice Massage,Electric Stimulation,Hot Packs, Paraffin Bath,Traction- Mechanical,Ultrasound Other Referrals/Consults Referrals/Consults Recommended Recommend Open mouth X-ray to assess for C1-C2 dysfunction. Next Visit Focus/Plan Next Note Type Treatment Note Next Visit Plan NEXT: Review posture with mobility carryover. Educate in proper nighttime positioning. Deep C. neck flexor strengthening. Start general UE strengthening w/correct posture. POC: Stabilization of C/S, R shoulder/scapular stabilizers, C. AROM stretch, Postural correction exercises. Pt education sit/stand posture, & body mechanics.
--- NOTE | 2023-08-28 09:00 | PT.OTN ---
Current Diagnoses Other chronic pain (08/28/23) Unspecified osteoarthritis, unspecified site (08/28/23) Cervicalgia (08/28/23) Pain in unspecified finger(s) (08/28/23) Physical Therapy Treatment Note PT-OP-A Visit Information Start: 06/20/23 17:20 Freq: Status: Active Protocol: Document 08/28/23 08:22 SP (Rec: 08/28/23 09:02 SP [id number]) Out-Patient Physical Therapy Visit Information Visit Information Visit Type Treatment Note Visit Start Time 08:22 Visit Stop Time 09:00 Visit Number 03/19 Number of BASEBALL GLOVE STUFFER Visits 2 Precautions Precautions Pt history of inflammatory arthritis, back and neck pain. Record review: cervical spondylosis, anterolisthesis of cervical spine, ringing in ear, dizziness with lifting and R UE weakness - 06/12/23. 08/15/23 x-ray: Moderate degenerative changes and anterolisthesis of C3 on C4 and C7 on T1. PT-OP-B Current Condition Start: 06/20/23 17:20 Freq: Status: Active Protocol: Document 07/13/23 09:50 LRN (Rec: 07/13/23 12:47 LRN [id number]) Current Condition History of Current Condition Onset Date 2 months ago. Current Complaints Pain at back of neck, head, R shoulder & R arm pain. History of Current Condition Pt denies any recent incident that she can recall occuring prior to onset of posterior neck tightness (has always had mobility issues) that has progressively moved into the head causing headaches, and eventually caused pain with any head movement. She also c /o shoulder pain, mostly on the right. 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 Pt also reports a deformed R middle finger, but is most interested in rehab for her neck pain. States MD asked if she wanted therapy for her R middle finger deformity, so she said yes, but that her neck is the main reason for coming to therapy. She reports seeing an [facility] (Dr. Fierro) and was told her she had a pinched nerve. Head pain is much reduced and rated 1-2/10. Prior Treatments and Tests Massage therapy and myofascial work ever other week. X-rays taken (05/10/23): C1 appear intact on the odontoid view. No suspicious bony lesions. Severe cervical spondylosis. Multilevel facet arthropathy. Severe disc height loss at C4-C5. Anterolisthesis of C3 on C4 measures approximately 3.5 mm. Future Testing and Treatments Planned Pt hopes for MRI after 6 PT visits. Developmental History Developmental History Pt reports 2 soares ago was pushing wheelbarrow and slipped landing on her knees, causing her chin to hit the wheelbarrel edge. Pt feels she had recovered from the fall. She is exercising with an dyeing machine tender seeing eye dog trainer 2-3x/week. Pt history of Arthritis, back & neck pain, recent headaches. 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 Treatment Goals Patient/Caregiver Goals Pt goal is: Learn ex or movements that will help support her neck to prevent injections or surgery. Able to move wood and work in yard without onset of neck and R shoulder pain. Increase strength of R arm. Personal Factors Other Personal Factors That May Effect Lives on [address] independently Therapy/Recovery on [place] acres and supports her mother. [employer] participation for 10 yrs, ending 5 yrs ago. Musculoskeletal changes ( Anterolisthesis of C3 on C4, disc hgt loss C4-C5, and multilevel facet arthroopathy) . PT-OP-C Subjective Start: 06/20/23 17:20 Freq: Status: Active Protocol: Document 08/28/23 08:22 SP (Rec: 08/28/23 09:02 SP [id number]) OP-PT Subjective Patient Comments Patient Comments Pt reports got results from MRI CS and have a cyst but not know more details yet. SHe hears from today. PT-OP-H Neuro Start: 06/20/23 17:20 Freq: Status: Active Protocol: Document 07/18/23 14:36 LRN (Rec: 07/18/23 15:43 LRN [id number]) Deep Tendon Reflex & Clonus Assessment Deep Tendon Reflex Bilateral Brachioradialis Deep Tendon Reflex 2+ Normal Bilateral Tricep Deep Tendon Reflex 2+ Normal Right Bicep Deep Tendon Reflex 1+ Diminished Left Bicep Deep Tendon Reflex 2+ Normal PT-OP-J Posture/Palpation/Skin Start: 06/20/23 17:20 Freq: Status: Active Protocol: Document 07/13/23 09:50 LRN (Rec: 07/13/23 12:47 LRN [id number]) Posture Evaluation Position Standing Head/C-Spine Posture C-Spine Flattened,Forward Head L-Spine Posture Increased Lordosis Shoulder Posture (L) Forward,(L) Elevated Scapula Posture (R) Retracted,(R) Depressed Arm Posture (L) Internally Rotated,(R) Internally Rotated Pelvis Posture Neutral Comments Posture Comments L chest more anterior, (tight on R side of neck), dowagers hump, Chest in L rotation. Palpation Assessment Location R Rhomboids/Infraspinatus Palpation Location R Rhomboids & Infraspinatus. Palpation Details atrophy R Rhomboids, & infraspinatus R UT Palpation Location R UT feels tight, but is atrophied. Palpation Details Atrophy Neck Palpation Location Suboccipital Palpation Details Tingling down arm. PT-OP-K Range of Motion Start: 06/20/23 17:20 Freq: Status: Active Protocol: Document 08/08/23 11:20 LRN (Rec: 08/08/23 12:16 LRN [id number]) Cervical Spine Range of Motion Cervical Spine Active Degrees Testing Position Sitting Flexion 10 Extension 18 Rotation Left 45 Rotation Right 33 Lateral Flexion Left 10 Lateral Flexion Right 13 Comments SB causes head dull ache pain and ms tightness. Ext is reported to be more difficult than flexion. PT-OP-M Strength Start: 06/20/23 17:20 Freq: Status: Active Protocol: Document 07/18/23 14:36 LRN (Rec: 07/18/23 15:43 LRN [id number]) Hand Linen Room Attendant/Pinch Strength Hand Dominance Hand Dominance Right Hand Strength Right Comments lbs: 47, 35, 42 - avg is 41 lbs k, 16, 19 - avg is 19 kg (Norm for age 50-54 is 29.8 kg ) Left Comments lbs: 53, 50, 47 - avg is 50 lbs k, 22, 22 - avg is 22.7 kgs (Norm for age 50-54 is 26 kg) PT-OP-Q Treatments Start: 06/20/23 17:20 Freq: Status: Active Protocol: Document 08/28/23 08:22 SP (Rec: 08/28/23 09:02 SP [id number]) Therapeutic Exercises Supine Exercises shld HABD Supine Exercise Name REviewed HEP, declined HO Side bilateral Resistance 1>2>3>5# DB Reps/Minutes x5 reps each, 5# 10 reps Comments improve chin tuck, cued x1 maintain, good scap correction - no neck/face shld FF Supine Exercise Name Reviewed HEP, declined HO Side bilateral Resistance dowel 2# wt Reps/Minutes x10 reps each resistance Comments good chin tuck, no neck/face muscle tension Deep C. neck flexor Kevin Supine Exercise Name Deep C. neck flexor kevin 5 SH x5, DNF lift x5 Equipment Used No pillow, small needed towel roll under neck Reps/Minutes 5 SH x 4 reps, then brief lift Comments cued for Maintain DNF during lift- pnfree Sidelying Exercises Open book stretch Sidelying Exercise Name Open book stretch (HEP) Side bilateral Equipment Used Pillow and towel roll at neck Reps/Minutes 8 reps- improved Raynaud's R>L 1-5th fingers Comments cued painfree cervical ROM, focus on scapular glide, C/S & T/S rot Sitting Exercises cervical & scap retraction Sitting Exercise Name Top of Head Pushing to ceiling Side bilateral Resistance added shld ER TB #1- declined HO Reps/Minutes 5SH x10 Comments Improved- good feedback pain/ tingle free Manual Therapy Treatment Soft Tissue Mobilization Paraspinals Body Location Cervical Paraspinals Mobilization Type Strumming Intensity/Depth Moderate Suboccipital Body Location Kal Suboccipital release Mobilization Type Myofascial Release Intensity/Depth Moderate Body Position Hooklying Head Body Location R>L side, top and side of head Mobilization Type Myofascial Release Intensity/Depth Superficial Body Position Supine Comments Mild restriction on R side. L SCM Body Location R>L SCM at mastoid process & prox to sternum, Scalene Mobilization Type Rolling,Sustained Pressure, Other Intensity/Depth Moderate Body Position Supine Comments gentle STM with instruction on self application pincer knead , sustained pressure with head nod/turn R side of face Body Location MFR R>L temporalis, ear pull Mobilization Type Myofascial Release,Sustained Pressure,Other Intensity/Depth Superficial Body Position Supine R UT Body Location L>R UT, SOR Mobilization Type Strumming,Sustained Pressure Intensity/Depth Superficial Comments good feedback response occiput posterior glide into flexion. PT-OP-T Assessment and Plan Start: 06/20/23 17:20 Freq: Status: Active Protocol: Document 08/28/23 08:22 SP (Rec: 08/28/23 09:02 SP [id number]) Physical Therapy Assessment Goals Three Impairment Decreased neck strength Impairment Generally 4/5 Short Term Goal (STG) Pt will be educated in a Cervical strengthening HEP. 07/18/23: I/S HEP: Deep C. neck flexor kevin strengthening (neck elongation) & Scapular pinches without R wrist/pinky or head sensation changes/pain . 08/16/23: progressing CS positioning during wall posture, sit/stand/mobility transfers/picking up items. STG Duration 2 wks-07/28/23 progressed Cook Starch Goal (LTG) Improve Cervical strength 1/2 grade with pt able to tolerate her exercise workouts without and increase in neck or R shoulder pain. 07/13/22: I/S HEP: Kevin C. flex strengthening. 07/18/23: I/S HEP: Deep C. neck flexor strengthening. LTG Duration 10 wks-09/22/23 progressed 07/13/23 Two Impairment Decreased R shoulder strength Cook Starch Goal (LTG) Increase R shoulder/UE strength to 5/5 with pt able to move winter wood and work in yard without onset of neck and R shoulder pain. 07/18/23: I/S HEP: Scapular pinches. LTG Duration 10 wks-09/22/23 progressed 07/18/23 One Impairment Pt lacks appropriate self care HEP. Short Term Goal (STG) Pt will be educated in proper nighttime positioning to minimize neck/shoulder pain. 08/25/23: discussed side sleeping pillow support BLEs/ behind back review and towel roll under neck in pillow case added support. STG Duration 2 wks-07/28/23 progressing 08/24 Intermediate Goal (LTG) Pt will be educated in HEP for ROM and strengthening of neck /shoulder/upper back that will help support her neck to prevent injections or surgery. 07/21/23: I/S in HEP: Deep C . neck flexor & open book stretch. 08/16/23: trialed wall posture and use dowel for postural alignment, no HOs given. CS isometrics. 08/25/23: added CS chin tuck lift, CS neutral FF and HABD supine LTG Duration 10 wks-09/22/23 progressing 08/25/23 Assessment Summary Assessment Pt responded well to manual with reported and noticed increased CS ROM. Improved DNF contraction and lift from pillow, occasional cues for maintain chin nod into lift and only unweight at this time . Ed for performance when log roll and sitting up for carryover strengthening spinal support, improved demonstration with cuing. Painfree with added resisted UE ther ex with self corrections CS neutral. Cued open book scapular glide and some TS rotation, not over stress GH jt. Pt able to increase resistance with no reports of increased tension on CS. Physical Therapy Plan Frequency and Duration Frequency of Treatment 2x/Week Duration of treatment (weeks) 10 Plan of Care Start Date 07/13/23 Plan of Care End Date 09/22/23 Therapeutic Interventions Therapeutic Interventions Home Exercise Program,Joint Mobilizations,Manual Therapy, Neuromuscular Re-education, Self-Care/Home Management,Soft Tissue Mobilization,Taping, Therapeutic Activities, Therapeutic Exercises Modalities Cold Pack/Ice Massage,Electric Stimulation,Hot Packs, Paraffin Bath,Traction- Mechanical,Ultrasound Other Referrals/Consults Referrals/Consults Recommended Recommend Open mouth X-ray to assess for C1-C2 dysfunction. Next Visit Focus/Plan Next Note Type Treatment Note Next Visit Plan NEXT: Review posture with mobility carryover. Educate in proper nighttime positioning. Deep C. neck flexor strengthening. Start general UE strengthening w/correct posture. POC: Stabilization of C/S, R shoulder/scapular stabilizers, C. AROM stretch, Postural correction exercises. Pt education sit/stand posture, & body mechanics.
--- NOTE | 2023-08-30 09:00 | PT.OTN ---
Current Diagnoses Other chronic pain (08/30/23) Unspecified osteoarthritis, unspecified site (08/30/23) Cervicalgia (08/30/23) Pain in unspecified finger(s) (08/30/23) Physical Therapy Treatment Note PT-OP-A Visit Information Start: 06/20/23 17:20 Freq: Status: Active Protocol: Document 08/30/23 08:21 SP (Rec: 08/30/23 09:06 SP [id number]) Out-Patient Physical Therapy Visit Information Visit Information Visit Type Treatment Note Visit Start Time 08:21 Visit Stop Time 09:00 Visit Number 04/18 Number of COMPLIANCE MANAGER Visits 3 Evaluation Information Evaluation Date 07/13/23 Precautions Precautions Pt history of inflammatory arthritis, back and neck pain. Record review: cervical spondylosis, anterolisthesis of cervical spine, ringing in ear, dizziness with lifting and R UE weakness - 06/12/23. 08/15/23 x-ray: Moderate degenerative changes and anterolisthesis of C3 on C4 and C7 on T1. PT-OP-B Current Condition Start: 06/20/23 17:20 Freq: Status: Active Protocol: Document 07/13/23 09:50 LRN (Rec: 07/13/23 12:47 LRN [id number]) Current Condition History of Current Condition Onset Date 2 months ago. Current Complaints Pain at back of neck, head, R shoulder & R arm pain. History of Current Condition Pt denies any recent incident that she can recall occuring prior to onset of posterior neck tightness (has always had mobility issues) that has progressively moved into the head causing headaches, and eventually caused pain with any head movement. She also c /o shoulder pain, mostly on the right. 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 Pt also reports a deformed R middle finger, but is most interested in rehab for her neck pain. States MD asked if she wanted therapy for her R middle finger deformity, so she said yes, but that her neck is the main reason for coming to therapy. She reports seeing an [facility] (Dr. Fierro) and was told her she had a pinched nerve. Head pain is much reduced and rated 1-2/10. Prior Treatments and Tests Massage therapy and myofascial work ever other week. X-rays taken (05/10/23): C1 appear intact on the odontoid view. No suspicious bony lesions. Severe cervical spondylosis. Multilevel facet arthropathy. Severe disc height loss at C4-C5. Anterolisthesis of C3 on C4 measures approximately 3.5 mm. Future Testing and Treatments Planned Pt hopes for MRI after 6 PT visits. Developmental History Developmental History Pt reports 2 soares ago was pushing wheelbarrow and slipped landing on her knees, causing her chin to hit the wheelbarrel edge. Pt feels she had recovered from the fall. She is exercising with an evening sitter vocational trainer 2-3x/week. Pt history of Arthritis, back & neck pain, recent headaches. 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 Treatment Goals Patient/Caregiver Goals Pt goal is: Learn ex or movements that will help support her neck to prevent injections or surgery. Able to move wood and work in yard without onset of neck and R shoulder pain. Increase strength of R arm. Personal Factors Other Personal Factors That May Effect Lives on [address] independently Therapy/Recovery on [place] acres and supports her mother. [employer] participation for 10 yrs, ending 5 yrs ago. Musculoskeletal changes ( Anterolisthesis of C3 on C4, disc hgt loss C4-C5, and multilevel facet arthroopathy) . PT-OP-C Subjective Start: 06/20/23 17:20 Freq: Status: Active Protocol: Document 08/30/23 08:21 SP (Rec: 08/30/23 09:06 SP [id number]) OP-PT Subjective Patient Comments Patient Comments Pt reports neck little achy but felt better after last tx and at home. PT-OP-H Neuro Start: 06/20/23 17:20 Freq: Status: Active Protocol: Document 07/18/23 14:36 LRN (Rec: 07/18/23 15:43 LRN [id number]) Deep Tendon Reflex & Clonus Assessment Deep Tendon Reflex Bilateral Brachioradialis Deep Tendon Reflex 2+ Normal Bilateral Tricep Deep Tendon Reflex 2+ Normal Right Bicep Deep Tendon Reflex 1+ Diminished Left Bicep Deep Tendon Reflex 2+ Normal PT-OP-J Posture/Palpation/Skin Start: 06/20/23 17:20 Freq: Status: Active Protocol: Document 07/13/23 09:50 LRN (Rec: 07/13/23 12:47 LRN [id number]) Posture Evaluation Position Standing Head/C-Spine Posture C-Spine Flattened,Forward Head L-Spine Posture Increased Lordosis Shoulder Posture (L) Forward,(L) Elevated Scapula Posture (R) Retracted,(R) Depressed Arm Posture (L) Internally Rotated,(R) Internally Rotated Pelvis Posture Neutral Comments Posture Comments L chest more anterior, (tight on R side of neck), dowagers hump, Chest in L rotation. Palpation Assessment Location R Rhomboids/Infraspinatus Palpation Location R Rhomboids & Infraspinatus. Palpation Details atrophy R Rhomboids, & infraspinatus R UT Palpation Location R UT feels tight, but is atrophied. Palpation Details Atrophy Neck Palpation Location Suboccipital Palpation Details Tingling down arm. PT-OP-K Range of Motion Start: 06/20/23 17:20 Freq: Status: Active Protocol: Document 08/08/23 11:20 LRN (Rec: 08/08/23 12:16 LRN [id number]) Cervical Spine Range of Motion Cervical Spine Active Degrees Testing Position Sitting Flexion 10 Extension 18 Rotation Left 45 Rotation Right 33 Lateral Flexion Left 10 Lateral Flexion Right 13 Comments SB causes head dull ache pain and ms tightness. Ext is reported to be more difficult than flexion. PT-OP-M Strength Start: 06/20/23 17:20 Freq: Status: Active Protocol: Document 07/18/23 14:36 LRN (Rec: 07/18/23 15:43 LRN [id number]) Hand Dental Technician Instructor/Pinch Strength Hand Dominance Hand Dominance Right Hand Strength Right Comments lbs: 47, 35, 42 - avg is 41 lbs k, 16, 19 - avg is 19 kg (Norm for age 50-54 is 29.8 kg ) Left Comments lbs: 53, 50, 47 - avg is 50 lbs k, 22, 22 - avg is 22.7 kgs (Norm for age 50-54 is 26 kg) PT-OP-Q Treatments Start: 06/20/23 17:20 Freq: Status: Active Protocol: Document 08/30/23 08:21 SP (Rec: 08/30/23 09:06 SP [id number]) Therapeutic Exercises Supine Exercises pec stretch Supine Exercise Name reviewed self Equipment Used over foam roller Reps/Minutes 20 SH Comments good response anterior stretch Ts ext/rolling Supine Exercise Name reviewed self TS mobility Side bilateral Equipment Used foam roller Reps/Minutes 20 sec Comments gd form, supporting head Ws Supine Exercise Name initiated added to HEP Side bilateral Resistance 3# Equipment Used over foam roller Reps/Minutes x10 Comments good feedback pec active stretch shld HABD Supine Exercise Name REviewed HEP, declined HO Side bilateral Resistance 3>5# DB Equipment Used over foam roller Reps/Minutes 10 reps each Comments improved form/cued maintain no lower than body at foam roller, pnfree shld FF Supine Exercise Name Reviewed HEP, declined HO Side bilateral Resistance 3>5# DB Equipment Used over foam roller Reps/Minutes x10 reps each resistance Comments good chin tuck, no neck/face muscle tension, stay no lower foam roller Standing Exercises RTC Standing Exercise Name added to HEP: IR, ER, shld ext - decline HO Side bilateral Resistance TB #6 purple (has TB home) Reps/Minutes x10 Comments cued DNF neutral, elbows straight/ext to side- pnfree neck scap good efft Manual Therapy Treatment Soft Tissue Mobilization Paraspinals Body Location Cervical Paraspinals Mobilization Type Strumming,Sustained Pressure, Other Intensity/Depth Moderate Comments STMs and MWM head nods Suboccipital Body Location Kal Suboccipital release Mobilization Type Myofascial Release Intensity/Depth Moderate Body Position Hooklying L SCM Body Location B SCM fine, R>L Scalene Mobilization Type Rolling,Sustained Pressure, Other Intensity/Depth Moderate Body Position Supine Comments gentle STM with instruction on self application pincer knead , sustained pressure with head nod/turn, strumming Scalene Self-Care/Home Management Treatment Education Patient Education Body Mechanics,Home Exercise Program,Pain Management, Posture Other Education Added RTC ex: resisted shld ext, IR& ER, reviewed supine ex over foam roller today and self TS rolling, good feedback pnfree, good self corrections for CS. PT-OP-T Assessment and Plan Start: 06/20/23 17:20 Freq: Status: Active Protocol: Document 08/30/23 08:21 SP (Rec: 08/30/23 09:06 SP [id number]) Physical Therapy Assessment Goals Three Impairment Decreased neck strength Impairment Generally 4/5 Short Term Goal (STG) Pt will be educated in a Cervical strengthening HEP. 07/18/23: I/S HEP: Deep C. neck flexor kevin strengthening (neck elongation) & Scapular pinches without R wrist/pinky or head sensation changes/pain . 08/16/23: progressing CS positioning during wall posture, sit/stand/mobility transfers/picking up items. STG Duration 2 wks-07/28/23 progressed Equipment Tester Goal (LTG) Improve Cervical strength 1/2 grade with pt able to tolerate her exercise workouts without and increase in neck or R shoulder pain. 07/13/22: I/S HEP: Kevin C. flex strengthening. 07/18/23: I/S HEP: Deep C. neck flexor strengthening. LTG Duration 10 wks-09/22/23 progressed 07/13/23 Two Impairment Decreased R shoulder strength Senior Care Goal (LTG) Increase R shoulder/UE strength to 5/5 with pt able to move winter wood and work in yard without onset of neck and R shoulder pain. 07/18/23: I/S HEP: Scapular pinches. LTG Duration 10 wks-09/22/23 progressed 07/18/23 One Impairment Pt lacks appropriate self care HEP. Short Term Goal (STG) Pt will be educated in proper nighttime positioning to minimize neck/shoulder pain. 08/25/23: discussed side sleeping pillow support BLEs/ behind back review and towel roll under neck in pillow case added support. STG Duration 2 wks-07/28/23 progressing 08/24 Senior Care Goal (LTG) Pt will be educated in HEP for ROM and strengthening of neck /shoulder/upper back that will help support her neck to prevent injections or surgery. 07/21/23: I/S in HEP: Deep C . neck flexor & open book stretch. 08/16/23: trialed wall posture and use dowel for postural alignment, no HOs given. CS isometrics. 08/25/23: added CS chin tuck lift, CS neutral FF and HABD supine LTG Duration 10 wks-09/22/23 progressing 08/25/23 Assessment Summary Assessment Pt pnfree good eccentric stretch and progress resisted ex over foam roller, improved B finger circulation normal/ pink coloring. Post ed neck/ scap positioning, good carryover corrections and no adverse affect to addition of RTC strenghtening, reports has own TBs home. Pt stated felt good end tx. Physical Therapy Plan Frequency and Duration Frequency of Treatment 2x/Week Duration of treatment (weeks) 10 Plan of Care Start Date 07/13/23 Plan of Care End Date 09/22/23 Therapeutic Interventions Therapeutic Interventions Home Exercise Program,Joint Mobilizations,Manual Therapy, Neuromuscular Re-education, Self-Care/Home Management,Soft Tissue Mobilization,Taping, Therapeutic Activities, Therapeutic Exercises Modalities Cold Pack/Ice Massage,Electric Stimulation,Hot Packs, Paraffin Bath,Traction- Mechanical,Ultrasound Other Referrals/Consults Referrals/Consults Recommended Recommend Open mouth X-ray to assess for C1-C2 dysfunction. Next Visit Focus/Plan Next Note Type Progress Note Next Visit Plan 11th visit PN next appt. NEXT: Review HEP over foam roller, added TB shld ext, IR& ER to HEP. Educate in proper nighttime positioning. Deep C. neck flexor strengthening. Start general UE strengthening w/ correct posture. POC: Stabilization of C/S, R shoulder/scapular stabilizers, C. AROM stretch, Postural correction exercises. Pt education sit/stand posture, & body mechanics.
--- NOTE | 2023-09-04 13:41 | PT.OTN ---
Current Diagnoses Other chronic pain (09/04/23) Unspecified osteoarthritis, unspecified site (09/04/23) Cervicalgia (09/04/23) Pain in unspecified finger(s) (09/04/23) Physical Therapy Treatment Note PT-OP-A Visit Information Start: 06/20/23 17:20 Freq: Status: Active Protocol: Document 09/04/23 08:20 LRN (Rec: 09/04/23 09:02 LRN [id number]) Out-Patient Physical Therapy Visit Information Visit Information Visit Type Treatment Note Visit Start Time 08:21 Visit Stop Time 09:01 Visit Number 05/19 Evaluation Information Evaluation Date 07/13/23 Precautions Precautions Pt history of inflammatory arthritis, back and neck pain. Record review: cervical spondylosis, anterolisthesis of cervical spine, ringing in ear, dizziness with lifting and R UE weakness - 06/12/23. 08/15/23 x-ray: Moderate degenerative changes and anterolisthesis of C3 on C4 and C7 on T1. PT-OP-B Current Condition Start: 06/20/23 17:20 Freq: Status: Active Protocol: Document 07/13/23 09:50 LRN (Rec: 07/13/23 12:47 LRN [id number]) Current Condition History of Current Condition Onset Date 2 months ago. Current Complaints Pain at back of neck, head, R shoulder & R arm pain. History of Current Condition Pt denies any recent incident that she can recall occuring prior to onset of posterior neck tightness (has always had mobility issues) that has progressively moved into the head causing headaches, and eventually caused pain with any head movement. She also c /o shoulder pain, mostly on the right. 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 Pt also reports a deformed R middle finger, but is most interested in rehab for her neck pain. States MD asked if she wanted therapy for her R middle finger deformity, so she said yes, but that her neck is the main reason for coming to therapy. She reports seeing an [facility] (Dr. Fierro) and was told her she had a pinched nerve. Head pain is much reduced and rated 1-2/10. Prior Treatments and Tests Massage therapy and myofascial work ever other week. X-rays taken (05/10/23): C1 appear intact on the odontoid view. No suspicious bony lesions. Severe cervical spondylosis. Multilevel facet arthropathy. Severe disc height loss at C4-C5. Anterolisthesis of C3 on C4 measures approximately 3.5 mm. Future Testing and Treatments Planned Pt hopes for MRI after 6 PT visits. Developmental History Developmental History Pt reports 2 soares ago was pushing wheelbarrow and slipped landing on her knees, causing her chin to hit the wheelbarrel edge. Pt feels she had recovered from the fall. She is exercising with an retail store manager whale trainer 2-3x/week. Pt history of Arthritis, back & neck pain, recent headaches. Did [employer] 10 yrs for funa and stopped 5 yrs ago. 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 Treatment Goals Patient/Caregiver Goals Pt goal is: Learn ex or movements that will help support her neck to prevent injections or surgery. Able to move wood and work in yard without onset of neck and R shoulder pain. Increase strength of R arm. Personal Factors Other Personal Factors That May Effect Lives [place] [address] independently Therapy/Recovery on [place] and supports her mother. [employer] participation for 10 yrs, ending 5 yrs ago. Musculoskeletal changes ( Anterolisthesis of C3 on C4, disc hgt loss C4-C5, and multilevel facet arthroopathy) . PT-OP-C Subjective Start: 06/20/23 17:20 Freq: Status: Active Protocol: Document 09/04/23 08:20 LRN (Rec: 09/04/23 09:02 LRN [id number]) OP-PT Subjective Patient Comments Patient Comments MRI last week. Showed narrowing and small cyst and has been referred to SPINE/ customer specialist for pain management. States the PT has been helping her manage her pain. Meds are not necessary yet. Feels with ex's she can manage her pain. CRAFT has gone away, has ringing in the ear. Patient Questionnaires Neck Disability Index NDI Score 5 Neck Disability Index Impairment 1 to 19% Impaired (Score 1-9) Quick Dash- Upper Extremity Quick Dash UE Score 21 Quick Dash UE Impairment 20 to 39% Impaired (Score 20- 39) OP-PT Pain Assessment Location Head Pain Location Details posterior and top Intensity 1 Scale Used Numeric (0 - 10) R shoulder Pain Location Details Top of R shoulder into lateral neck, R>L posterior upper back to mid scap Intensity 3 Scale Used Numeric (0 - 10) Neck Pain Location Details Subocciptal and middle of scapula, radiates up to head/R side of face. Intensity 2 Scale Used Numeric (0 - 10) PT-OP-H Neuro Start: 06/20/23 17:20 Freq: Status: Active Protocol: Document 07/18/23 14:36 LRN (Rec: 07/18/23 15:43 LRN [id number]) Deep Tendon Reflex & Clonus Assessment Deep Tendon Reflex Bilateral Brachioradialis Deep Tendon Reflex 2+ Normal Bilateral Tricep Deep Tendon Reflex 2+ Normal Right Bicep Deep Tendon Reflex 1+ Diminished Left Bicep Deep Tendon Reflex 2+ Normal PT-OP-J Posture/Palpation/Skin Start: 06/20/23 17:20 Freq: Status: Active Protocol: Document 07/13/23 09:50 LRN (Rec: 07/13/23 12:47 LRN [id number]) Posture Evaluation Position Standing Head/C-Spine Posture C-Spine Flattened,Forward Head L-Spine Posture Increased Lordosis Shoulder Posture (L) Forward,(L) Elevated Scapula Posture (R) Retracted,(R) Depressed Arm Posture (L) Internally Rotated,(R) Internally Rotated Pelvis Posture Neutral Comments Posture Comments L chest more anterior, (tight on R side of neck), dowagers hump, Chest in L rotation. Palpation Assessment Location R Rhomboids/Infraspinatus Palpation Location R Rhomboids & Infraspinatus. Palpation Details atrophy R Rhomboids, & infraspinatus R UT Palpation Location R UT feels tight, but is atrophied. Palpation Details Atrophy Neck Palpation Location Suboccipital Palpation Details Tingling down arm. PT-OP-K Range of Motion Start: 06/20/23 17:20 Freq: Status: Active Protocol: Document 08/08/23 11:20 LRN (Rec: 08/08/23 12:16 LRN [id number]) Cervical Spine Range of Motion Cervical Spine Active Degrees Testing Position Sitting Flexion 10 Extension 18 Rotation Left 45 Rotation Right 33 Lateral Flexion Left 10 Lateral Flexion Right 13 Comments SB causes head dull ache pain and ms tightness. Ext is reported to be more difficult than flexion. PT-OP-M Strength Start: 06/20/23 17:20 Freq: Status: Active Protocol: Document 03/11/24 08:20 LRN (Rec: 09/04/23 09:02 LRN [id number]) Cervical Spine Strength Cervical Spine Manual Muscle Testing Comments Generally 5/5. PT-OP-Q Treatments Start: 06/20/23 17:20 Freq: Status: Active Protocol: Document 09/04/23 08:20 LRN (Rec: 09/04/23 09:02 LRN [id number]) Therapeutic Exercises Supine Exercises Scalene Stretch Supine Exercise Name Scalene Stretch (anterior, posterior, lateral) Side bilateral Reps/Minutes 8' pec stretch Supine Exercise Name reviewed Equipment Used over foam roller Reps/Minutes 20 SH Comments good response anterior stretch Ws Supine Exercise Name initiated added to HEP- reviewed Side bilateral Equipment Used over foam roller Reps/Minutes x10 Comments good feedback pec active stretch Deep C. neck flexor Kevin Supine Exercise Name Deep C. neck flexor kevin Reps/Minutes 5 SH x10 (Self DNF lift x5) Comments cued for Maintain DNF during lift- pnfree Scapular pinches Supine Exercise Name Scapular pinches Side bilateral Comments Cuing for movement and to avoid pain an discomfort. Standing Exercises UE arm lifts Standing Exercise Name I/S in alternate arm lifts, horiz AB/AD & shdr press Side bilateral Comments I/S pt to work up to 10x 3 reps before adding wg. RTC Standing Exercise Name Reviewed Shldr IR/ER strengthening. Side right Manual Therapy Treatment Soft Tissue Mobilization Scalenes Body Location L Scalenes Mobilization Type Sustained Pressure Body Position Hooklying Self-Care/Home Management Treatment Education Other Education Discussed pt's self care program and discharge POC. Activities Self-Care/Home Management Activities Issued HEP: Scalene stretches . PT-OP-T Assessment and Plan Start: 06/20/23 17:20 Freq: Status: Active Protocol: Document 09/04/23 08:20 LRN (Rec: 09/04/23 09:02 LRN [id number]) Physical Therapy Assessment Goals Three Impairment Decreased neck strength Impairment Generally 4/5 Short Term Goal (STG) Pt will be educated in a Cervical strengthening HEP. 07/18/23: I/S HEP: Deep C. neck flexor kevin strengthening (neck elongation) & Scapular pinches without R wrist/pinky or head sensation changes/pain . 08/16/23: progressing CS positioning during wall posture, sit/stand/mobility transfers/picking up items. STG Duration 2 wks-07/28/23 (09/04/23: MET GOAL) [facility]ci Goal (LTG) Improve Cervical strength 1/2 grade with pt able to tolerate her exercise workouts without and increase in neck or R shoulder pain. 07/13/22: I/S HEP: Kevin C. flex strengthening. 07/18/23: I/S HEP: Deep C. neck flexor strengthening. 09/04/23: Pt able to do ex workouts w/o incr in neck or R shoulder pain by limiting ex' s that might cause it. Neck strength is 5/5. LTG Duration 10 wks-09/22/23 (09/04/23: MET GOAL) Two Impairment Decreased R shoulder strength Fci Goal (LTG) Increase R shoulder/UE strength to 5/5 with pt able to move winter wood and work in yard without onset of neck and R shoulder pain. 07/18/23: I/S HEP: Scapular pinches. 09/04/23: Has cut kindling, moved wood into house, and doing yard work w/o onset of neck/R shoulder pain. LTG Duration 10 wks-09/22/23 (09/04/23: MET GOAL) One Impairment Pt lacks appropriate self care HEP. Short Term Goal (STG) Pt will be educated in proper nighttime positioning to minimize neck/shoulder pain. 08/25/23: discussed side sleeping pillow support BLEs/ behind back review and towel roll under neck in pillow case added support. 09/04/23: Sleeping with reportedly less pain. STG Duration 2 wks-07/28/23 (09/04/23: MET GOAL) Gluing Pressman Goal (LTG) Pt will be educated in HEP for ROM and strengthening of neck /shoulder/upper back that will help support her neck to prevent injections or surgery. 07/21/23: I/S in HEP: Deep C . neck flexor & open book stretch. 08/16/23: trialed wall posture and use dowel for postural alignment, no HOs given. CS isometrics. 08/25/23: added CS chin tuck lift, CS neutral FF and HABD supine LTG Duration 10 wks-09/22/23 (09/04/23: MET GOAL) Assessment Summary Assessment The pt is 52 yo female with mechanical dysfunction of the cervical (anterolisthesis C3onC4, C7onT1) and thoracic spine, R shoulder, and intrascapular pain (C3-C7). Pt had a normal C1 on C2 alignment. Once pt was cleared of C1 on C2 dysfunction she was able to progressed on improving her cervical mobility and strength without concerns. Kathrin Cespedes has met all her goals and since she feels she is ready to be placed on her independent self care HEP, the pt is being discharged from therapy today to her HEP. Physical Therapy Plan Discharge Physical Therapy Discharge Reasons Goals Met Discharge Comments Pt felt ready to be placed on a self care HEP. Thank you for your referral
== END 2023-09-08 08:04 | disposition home or self-care (01) ==
LOC: PHYS 08:15
PROVIDERS: Family Provider Family Medicine; PCP Family Medicine; Referring Provider Physician Assistant; Visit Provider Physician Assistant
DX: M54.2 Cervicalgia (principal); G89.29 Other chronic pain; M19.90 Unspecified osteoarthritis, unspecified site; M79.646 Pain in unspecified finger(s)
CPT/HCPCS: 97110; 97140; 97162; 97535